=== PATIENT | female | born 1965 | race Caucasian/White ===

== ENCOUNTER 2020-07-12 06:02 | Emergency (ER) | payer OTHER, BC, SELFPAY ==
[2020-07-12 06:03] VITALS: BP 155/98; PULSE 119; RESP 18; TEMP 36.4; O2SAT 100
--- NOTE | 2020-07-12 06:10 | ED.GENADULT ---
HPI - General Adult General Chief complaint: Extremity Injury, Lower Stated complaint: leg pain Time Seen by Provider: 07/12/20 06:12 Source: patient Mode of arrival: EMS Limitations: no limitations History of Present Illness HPI narrative: A 55-year-old female presents to the emergency department with complaints of pain in her bilateral lower legs. Patient states that she is scheduled for knee replacement surgery on July 17. Because of this she was instructed to stop taking all of her rheumatoid arthritis medications. Because of this patient states that her pain has been flaring up severely tonight. Patient got to the point where she was states that she was in so much pain she could no longer walk. Related Data Home Medications Medication Instructions Recorded Confirmed pregabalin 75 mg capsule 150 mg PO TID cap 08/21/19 03/24/20 tramadol 50 mg tablet 50 mg PO Q6H PRN 08/21/19 03/24/20 Allergies Allergy/AdvReac Type Severity Reaction Status Date / Time No Known Allergies Allergy Verified 03/24/20 10:27 Review of Systems Review of Systems: Narrative: CONSTITUTIONAL: Denies fever, chills, or sweats. EYES: Denies visual changes, redness, or discharge. ENT: Denies rhinorrhea, congestion, sore throat, or otalgia. CARDIOVASCULAR: Denies chest pain, palpitations, or edema. RESPIRATORY: Denies cough or dyspnea. GASTROINTESTINAL: Denies abdominal pain, nausea, vomiting, or diarrhea. GENITOURINARY: Denies dysuria or hematuria. SKIN: Denies rash or itching. MUSCULOSKELETAL: Endorses exacerbations of chronic pain in her lower back and lower extremities NEUROLOGIC: Denies headache, numbness, dizziness, or weakness. PSYCHIATRIC: Denies anxiety or depression. [facility] Past Medical History Medical History CKD (chronic kidney disease) stage 3, GFR 30-59 ml/min GERD without esophagitis Hypertension Metal bone fixation hardware in place Neuropathy Obesity Rheumatoid arthritis Surgical History Surgical History History of knee surgery Previous back surgery S/P laminectomy with spinal fusion Family History Family History Father Hypertension Mother Hypertension Family history of scoliosis Family history of malignant melanoma Social History Social History Smoking status: Never smoker Second hand tobacco smoke exposure: No Alcohol intake: current Substance use: never Substance use type: does not use Gender identity (if verbalized by the patient): Female Exam Narrative: Exam Narrative: GENERAL: Well-appearing, well-nourished, and in no acute distress. Obese. HEAD: Normocephalic, atraumatic. EYES: PERRLA and EOMI. ENT: Nares clear, no rhinorrhea or epistaxis. Mucous membranes moist. Oropharynx without tonsillar hypertrophy exudate or other lesions. Bilateral TMs pearly mitchell nonbulging NECK: Supple. No adenopathy or masses. No carotid bruits or JVD CHEST: Clear to auscultation. No respiratory distress. No wheezes rales or rhonchi HEART: Regular rate and rhythm. No murmur heard. Normal peripheral pulses. ABDOMEN: Soft, nontender, nondistended, normal active bowel sounds. EXTREMITIES: Normal range of motion. No edema. SKIN: Warm, dry, no rash. NEURO: No focal deficits. Alert and oriented x3. PSYCH: Normal mood and affect. Course Vital Signs Vital signs: Vital Signs Temperature 36.4 C L 07/12/20 06:03 Pulse Rate 119 H 07/12/20 06:03 Respiratory Rate 18 07/12/20 06:03 Blood Pressure 155/98 H 07/12/20 06:03 Pulse Oximetry 100 07/12/20 06:03 Temperature 36.4 C L 07/12/20 07:04 Pulse Rate 119 H 07/12/20 06:03 Respiratory Rate 18 07/12/20 06:03 Blood Pressure 155/98 H 07/12/20 06:03 Pulse Oximetry 100 07/12/20 06:03 Medical Decision Making MDM Narrative M
[2020-07-12] MEDS: oxyCODONE/ACETAMINOPHEN (*CRX) 5-325 MG TABLET 2 TABLET PO (06:34)
[2020-07-12] MEDS: methylPREDNISolone SOD SUCC 125 MG VIAL IM (06:35)
[2020-07-12] MEDS: IBUPROFEN 400 MG TABLET 800 MG PO (06:35)
[2020-07-12 07:04] VITALS: TEMP 36.4
[2020-07-12 08:42] VITALS: BP 131/84; PULSE 115; RESP 18; O2SAT 97
== END 2020-07-12 08:44 | disposition home or self-care (01) ==
PROVIDERS: Emergency Provider Emergency Medicine; PCP Family Medicine
DX: M06.9 Rheumatoid arthritis, unspecified (principal); I12.9 Hypertensive chronic kidney disease with stage 1 through stage 4 chronic kidney disease, or unspecified chronic kidney disease; N18.30 Chronic kidney disease, stage 3 unspecified; K21.9 Gastro-esophageal reflux disease without esophagitis; G62.9 Polyneuropathy, unspecified; E66.9 Obesity, unspecified; Z68.37 Body mass index [BMI] 37.0-37.9, adult; Z98.1 Arthrodesis status
CPT/HCPCS: 96372; 99283; A9270; J2930

== ENCOUNTER 2020-07-23 16:56 | IRF | payer OTHER, BC, SELFPAY ==
--- NOTE | ~2020-07-23 | US_ITS ---
EXAMINATION:US venous doppler LE RT INDICATION:Leg edema and pain TECHNIQUE: Multiple grayscale, color flow and Doppler images of the right lower extremity deep venous systems were obtained and reviewed. COMPARISON:No prior studies for comparison. FINDINGS: The common femoral, superficial femoral and popliteal veins demonstrate normal respiratory variation, augmentation and compressibility. Color flow is also seen within the posterior tibial, pe roneal, greater saphenous and profunda veins. IMPRESSION: 1: No lower extremity deep venous thrombosis. Reviewed, dictated and finalized at location B. [facility] [employer]
--- NOTE | 2020-07-23 17:01 | ADMGEN ---
This patient, Natividad Rodriges, was admitted to [facility] Room 226-02. Patient/family oriented to hospital policies and general routines including ID bracelet, bed and alarms, visiting hours, pain management, procedures, bathroom and other care routines, personal items, smoking policy, room service/diet, and visiting hours. Information on how to activate the Rapid Response Team has been discussed. Patient/Family are encouraged to report perceived risks to care and to ask questions if they do not understand what they are told or what they should do.
[2020-07-23 18:28] VITALS: BP 135/83; PULSE 83; RESP 20; TEMP 36.3; O2SAT 95; BMI 39.5
[2020-07-23 22:00] VITALS: BP 123/78; PULSE 85; RESP 16; TEMP 36.4; O2SAT 99
[2020-07-23] MEDS: FERROUS SULFATE 324 MG TABLET PO (22:17)
[2020-07-23] MEDS: MAGNESIUM OXIDE 400 MG TABLET PO (22:18)
[2020-07-23] MEDS: oxyCODONE/ACETAMINOPHEN (*CRX) 5-325 MG TABLET 1 TABLET PO (22:24)
[2020-07-23] MEDS: CYCLOBENZAPRINE HCL 10 MG TABLET PO (22:25)
[2020-07-23] MEDS: oxyCODONE HCL (*CRX) 2.5 MG TAB IR PO (22:26)
[2020-07-23] MEDS: BENZOCAINE/MENTHOL (*BKC) 18 EA LOZENGE 1 LOZENGE PO (23:41)
[2020-07-24 05:27] LABS: Hematocrit 27.7 % (37.0-47.0); Hemoglobin 8.8 g/dL (12.0-15.0); Mean Corpuscular HGB Conc 31.8 g/dl (32-36); Mean Corpuscular Volume 97.5 fl (80-100); Mean Platelet Volume 9.7 fl (7.4-10.4); Platelet Count Result 506 k/mm3 (150-375); Red Blood Count 2.84 M/mm3 (4.2-5.4); Red Cell Distribution Width 17.3 % (11.5-14.5); White Blood Count 18.3 K/mm3 (4.5-10.0)
[2020-07-24 05:36] LABS: Anion Gap 5 mmol/L (8-16); Blood Urea Nitrogen 41 mg/dL (7-17); Calcium 9.3 mg/dL (8.4-10.2); Carbon Dioxide 27 mmol/L (22-30); Chloride 105 mmol/L (98-107); Estimated CRCL calculation 72 ml/min; Estimated Glomerular Filt Rate > 60; Glucose 96 mg/dL (65-105); Potassium 4.1 mmol/L (3.4-5.0); Sodium 137 mmol/L (137-145)
[2020-07-24 06:00] VITALS: BP 111/70; PULSE 82; RESP 16; TEMP 36.3; O2SAT 99
[2020-07-24] MEDS: PANTOPRAZOLE 40 MG TABLET PO (06:44)
[2020-07-24] MEDS: oxyCODONE/ACETAMINOPHEN (*CRX) 5-325 MG TABLET 1 TABLET PO ×2 (06:47→10:57)
[2020-07-24] MEDS: oxyCODONE HCL (*CRX) 2.5 MG TAB IR PO (06:48)
[2020-07-24 06:58] LABS: Atypical Lymphocytes Present; Band Neutrophils Percent 2 % (0-6); Eosinophils Absolute Manual 0.36 K/mm3 (0.02-0.5); Eosinophils Percent Manual 2 % (0-4); Monocytes Absolute Manual 1.64 K/mm3 (0.1-0.90); Monocytes Percent Manual 9 % (3-9); Neutrophils Absolute Manual 12.07 K/mm3 (1.7-7.2); Neutrophils Percent Manual 64 % (46-73); Nucleated Red Blood Cells 1 %; Platelet Estimate Increased (Adequate); Total Cells Counted 100
[2020-07-24 06:59] LABS: Anisocytosis 1+ (NORMAL); Hypochromasia 1+ (NORMAL); Large Platelets Present; Macrocytosis 1+ (NORMAL); Ovalocytes 1+ (NORMAL)
[2020-07-24 08:00] VITALS: PULSE 82; RESP 16; O2SAT 99
[2020-07-24] MEDS: BENZOCAINE/MENTHOL (*BKC) 18 EA LOZENGE 1 LOZENGE PO ×2 (08:41→23:44)
[2020-07-24] MEDS: ONDANSETRON HCL ODT 4 MG TABLET PO (08:56)
[2020-07-24] MEDS: CHOLECALCIFEROL 1,000 UNITS TABLET 5000 UNITS PO (11:21)
[2020-07-24] MEDS: lisinopriL 20 MG TABLET PO (11:22)
[2020-07-24] MEDS: FOLIC ACID 1 MG TABLET 2 MG PO (11:23)
[2020-07-24] MEDS: MAGNESIUM OXIDE 400 MG TABLET PO ×2 (11:23→21:02)
[2020-07-24] MEDS: ASCORBIC ACID 500 MG TABLET 1000 MG PO (11:23)
[2020-07-24] MEDS: FERROUS SULFATE 324 MG TABLET PO ×2 (11:23→16:22)
[2020-07-24] MEDS: ASPIRIN 325 MG ENTERIC TABLET PO (11:24)
[2020-07-24] MEDS: predniSONE 5 MG TABLET PO (11:24)
[2020-07-24] MEDS: PREGABALIN (*CRX) 75 MG CAPSULE 150 MG PO (11:36)
--- NOTE | 2020-07-24 12:41 | WPDREHABHP ---
H&P: HPI History of Present Illness Date/Time: 07/24/20 12:41 HISTORY OF PRESENT ILLNESS: The patient's primary rehab impairment category is [] The etiologic diagnosis is [] I saw this patient [id number] on [] The patient is a [] Therapy was initiated at the acute care facility and the patient transferred to us from [[facility]] on [] FALLS OR SURGERIES: The patient has had [no] major surgeries in the 100 days prior to admission. They had [no] falls in the past year. They had [no] falls with injury in the past year. PAST MEDICAL HISTORY: [] PAST SURGICAL HISTORY: [] SOCIAL HISTORY: [] FAMILY HISTORY: [] PRIOR LEVEL OF FUNCTION: Eating was [INDEPENDENT] Oral Care was [INDEPENDENT] Toileting Hygiene was [INDEPENDENT] Shower/Bathing was [INDEPENDENT] Upper Body Dressing was [INDEPENDENT] Lower Body Dressing was [INDEPENDENT] Donning/[employer] [place] Footwear was [INDEPENDENT] Rolling Left and Right was [INDEPENDENT] Sit to Lying was [INDEPENDENT] Lying to Sitting was [INDEPENDENT] Sit to Stand was [INDEPENDENT] Bed to Chair Transfers was [INDEPENDENT] Toilet Transfers was [INDEPENDENT] Walking was [INDEPENDENT] [>500 feet] with [NO DEVICE] Wheelchair Mobility was [NOT APPLICABLE PRIOR TO ADMISSION] Stairs were [INDEPENDENT] CURRENT LEVEL OF FUNCTION: Eating was [SET UP ONLY] Oral Care was [SET UP ONLY] Toileting Hygiene was [] Shower/Bathing was [] Upper Body Dressing was [] Lower Body Dressing was [] Donning/[employer] [place] Footwear was [] Rolling Left and Right was [] Sit to Lying was [] Lying to Sitting was [] Sit to Stand was [] Bed to Chair Transfers were [] Toilet Transfers were [] Walking was [] Wheelchair Mobility was [] Stairs were [] GOALS: Our therapists will evaluate the patient and establish the goals. However, upon pre-admission screening, the expected goals were to be [INDEPENDENT] with self-care, [INDEPENDENT] with transfers, and [INDEPENDENT] with functional mobility so that the patient can return home. ESTIMATED LENGTH OF STAY: [10-14 days] POTENTIAL BARRIERS TO DISCHARGE: [Patient lives alone.] [Family needs training.] [Severity of condition.] [Architectural barriers.] ACTIVE CO-MORBIDITIES PRESENT ON ADMISSION: Active co-morbidities include []. The above co-morbidities impact the patient's function and/or functional outcome by [] Narrative: Natividad Rodriges is a 55 year old female PMF Past Medical History Medical History CKD (chronic kidney disease) stage 3, GFR 30-59 ml/min GERD without esophagitis Hypertension Metal bone fixation hardware in place Neuropathy Obesity Rheumatoid arthritis Surgical History Surgical History History of knee surgery Previous back surgery S/P laminectomy with spinal fusion Family History Family History Father Hypertension Mother Hypertension Family history of scoliosis Family history of malignant melanoma Social History Social History Smoking status: Never smoker Second hand tobacco smoke exposure: No Alcohol intake: former Substance use: current Substance use type: prescription drug Other substance usage details: prescription Gender identity (if verbalized by the patient): Female Sexual Orientation (if Verbalized by the Patient): Lesbian, Rudolph, or Homosexual Spiritual care concerns: No Meds Home Medications and Allergies Home Medications Medication Instructions Recorded Confirmed Type cyclobenzaprine 10 mg tablet 10 mg PO TID PRN #90 tablet 06/05/19 07/23/20 Rx pregabalin 75 mg capsule 150 mg PO DAILY cap 08/21/19 07/23/20 History lisinopril 20 mg tablet 20 mg PO DAILY #90 tablet 09/10/19 07/23/20 Rx abatacept 125 mg/mL subcutaneous 125 mg SUB-Q WEEKLY #4 ml 02/14/20
--- NOTE | 2020-07-24 12:43 | WPDREHABHP ---
H&P: HPI History of Present Illness Date/Time: 07/24/20 12:43 Chief Complaint: is status post right total knee arthroplasty in addition to the history of rheumatoid arthritis and osteoarthritis Narrative: Natividad Rodriges is a 55 year old femaleHISTORY OF PRESENT ILLNESS: the patient's primary rehab impairment category is orthopedic -lower extremity joint replacement and etiological diagnosis is right knee rheumatoid arthritis with osteoarthritis history of present illness: the patient is a 55 years old female with a past medical history of hypertension, rheumatoid arthritis, osteoarthritis, and right knee pain who presented to [facility] on July 17, 2020 for an elective total knee arthroplasty with Dr. Joon vyas. The patient was seen by Dr. Juanita vyas for evaluation and treatment of and specially difficult case of rheumatoid arthritis with osteoarthritic damage overlying. 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 She was diagnosed with rheumatoid arthritis approximately 6 years previously and had a rapid worsening of deterioration in all of her joints including her spine. This patient was treated with multiple medications to include, methotrexate, prednisone, and meloxicam. The patient has received multiple intra-articular injections and other treatments, including medial meniscectomy, debridement of the patellofemoral articulation, removal of loose bodies, and removal of scar tissues. She was rapidly worsening even with medications, heat, ice, and physical therapy. She was primarily in a wheelchair prior to the surgery. She underwent a right total knee arthroplasty on July 17, [address] Juanita vyas. Postoperatively the patient experienced significant hypotension requiring rapid response, acute postoperative pain, acute blood loss anemia requiring blood transfusion, acute renal failure, urinary retention, and hypertension. Physical examination continued to reveal impaired ability to ambulate, left knee buckling, impaired ability to perform activities of daily living independently. She required intensive inpatient physical and occupational therapy to transition to independence. She was discharged to rehab on aspirin 325 mg twice a day for DVT prophylaxis. #COVID: The patient has not traveled outside the [place] or had contact with someone who is ill that is travel outside the [place] in the past 21 days. The patient has not traveled to an area of the [place] that is experiencing known transmission of the Coronavirus and has not had close personal contact with anyone that has. The patient does not have a fever the patient is not experiencing lower respiratory illness symptoms. # Therapy was initiated at the acute care facility and the patient was transferred to us from [facility] on July 23, 2020. FALLS OR SURGERIES: The patient has had major surgery in the last 100 days that is on July 17, 2020 right total knee arthroplasty. The patient has had no falls in the past year. The patient has had no falls with injury in the past year. PAST MEDICAL HISTORY: Hypertension, rheumatoid arthritis, osteoarthritis. PAST SURGICAL HISTORY: osteotomy, arthroscopy, and back surgery. SOCIAL HISTORY: The patient is , is a nonsmoker, denies alcohol or drug abuse. The patient lives with her spouse in a 1 level house with a basement with 3 steps to enter. The patient was independent with transfers, ADL S, ambulation with a wheeled walker or cane. Long distances or when her knees were really hurting she would use a wheelchair independently. The patient's spouse works during the day but if the patient needs assistance at home immediately following rehab will be able to stay with the patient FAMILY HISTORY: hypertension. No family history of illness that would affect her current condition. PRIOR LEVEL OF FUNCTION: Eating was
[2020-07-24 13:09] VITALS: BMI 39.5
[2020-07-24 14:00] VITALS: BP 121/74; PULSE 87; RESP 20; TEMP 36.7; O2SAT 100
[2020-07-24] MEDS: oxyCODONE/ACETAMINOPHEN (*CRX) 5-325 MG TABLET 2 TABLET PO ×2 (16:19→21:09)
[2020-07-24] MEDS: LIDOCAINE 5% PATCH 1 PATCH TRANSDERM ×2 (16:22→16:23)
[2020-07-24] MEDS: NEOMYCIN/POLYMYXIN/BACITRACIN OINTMENT 15 GM TUBE 1 APPLIC TOPICAL (17:06)
[2020-07-24 20:00] VITALS: PULSE 81; RESP 18; O2SAT 99
[2020-07-24] MEDS: CYCLOBENZAPRINE HCL 10 MG TABLET PO (21:09)
[2020-07-24 21:55] VITALS: BP 136/84; PULSE 81; RESP 18; TEMP 36.4; O2SAT 99
[2020-07-25] MEDS: oxyCODONE/ACETAMINOPHEN (*CRX) 5-325 MG TABLET 2 TABLET PO ×5 (01:11→18:33)
[2020-07-25 04:55] VITALS: BP 122/68; PULSE 81; RESP 18; TEMP 36.6; O2SAT 98
[2020-07-25] MEDS: PANTOPRAZOLE 40 MG TABLET PO (06:54)
[2020-07-25] MEDS: CHOLECALCIFEROL 1,000 UNITS TABLET 5000 UNITS PO (08:40)
[2020-07-25] MEDS: FOLIC ACID 1 MG TABLET 2 MG PO (08:40)
[2020-07-25] MEDS: ASPIRIN 325 MG ENTERIC TABLET PO (08:40)
[2020-07-25] MEDS: FERROUS SULFATE 324 MG TABLET PO ×2 (08:40→17:09)
[2020-07-25] MEDS: ASCORBIC ACID 500 MG TABLET 1000 MG PO (08:40)
[2020-07-25] MEDS: MAGNESIUM OXIDE 400 MG TABLET PO ×2 (08:41→20:37)
--- NOTE | 2020-07-25 08:41 | RPD ---
INDIVIDUALIZED PLAN OF CARE FOR Natividad Rodriges Brief Synthesis of Pre-Admission Screen, Post-Admission Evaluation and Therapy Evaluations: The patient presents to rehab with a right knee rheumatoid arthritis with osteoarthritis and post-op complications. Comorbidities include status post right total knee arthroplasty, acute postoperative pain, postoperative hypotension, acute renal failure, hypertension, acute blood loss anemia, gastroesophageal reflux disease, Rheumatoid arthritis, obesity, impaired mobility, and decreased urine output. The complexity of the patient's medical management,nursing, and therapy needs require an inpatient rehab hospital stay with a physician-led interdisciplinary team approach. The patient?s needs will be best met in an intensive program vs. at a lower level of care. The patient requires physician services for medical oversight, management of postop complications in setting of present comorbidities, and pain management. She will be followed at least three times a week by the rehabilitation physician. Orthopedics may see the patient at the frequency of their discretion. Labs will be drawn to monitor blood counts and electrolytes periodically. The patient requires nursing services for DVT prophylactics, infection protection, medication management and education, pressure relief, and wound care. Deficits include:ADLs, Balance, Endurance, Family Training/Education, Mobility, Pain Management, ROM, Safety, Strength, and Transfers. Visual Basic Developer/Case Management for: Discharge Planning and Patient/Family Counseling Physical Therapy: 5 days per week for 90 minutes. Treatments may include: Therapeutic Exercise, Gait Training, Neuromuscular Re-education, Transfer Training, Community Reintegration, Bed Mobility, Patient/Family Education, Wheelchair Mobility Group Therapy/Concurrent Therapy Rationales: -Improve attention span during functional activities in a distracted environment. -Enhance problem solving and/or adequate judgment skills during functional activities in a distracted environment. -Promote increased safety awareness in a distracted environment to reduce fall risk with functional tasks, transfers, and ambulation to allow a more safe, self-sufficient return to the home environment. -Improve dynamic balance skills to promote safety and independence with functional activities in a distracted environment for maximum gain. Occupational Therapy: 5 days per week for 90 minutes. Treatments may include: Therapeutic Exercise, Therapeutic Activity, Cognitive Training, Self-Care Transfer Training, Community Reintegration, Home Management, Patient/Family Education, Wheelchair Mobility Training, Energy Conservation Training Group Therapy/Concurrent Therapy Rationales: -Allow therapist to observe and teach generalization and carry-over of skills learned in individual therapy. -Enhance problem solving and sequencing skills during therapeutic activities in a distracted environment. -Promote increased safety awareness in a realistic setting to reduce fall risk with functional tasks due to visual and verbal distractions. -Increase functional level with ADLs, ADL transfers and use of adaptive equipment through therapeutic activities with others while promoting safety to allow a more safe, self-sufficient return home. Medical Prognosis: Good Anticipated Length of Stay: 10 days Rehab Goals: Eating Goal: 06-Independent Oral Hygiene Goal: 06-Independent Toileting Hygiene Goal: 06-Independent Shower/Bathe Self Goal: 06-Independent Upper Body Dressing Goal: 06-Independent Lower Body Dressing Goal: 06-Independent Putting On/Taking Off Footwear Goal: 06-Independent Rolling Left and Right Goal: 06-Independent Sit to Lying Goal: 06-Independent Lying to Sitting on Side of Bed Goal: 06-Independent Sit to Stand Goal: 06-Independent Chair/[id number]-uw-[id number] Transfer Goal: 06-Independent Toilet Transfer Goal: 06-Independent Car Transfer Goal: 06-Independent W
[2020-07-25] MEDS: NEOMYCIN/POLYMYXIN/BACITRACIN OINTMENT 15 GM TUBE 1 APPLIC TOPICAL (08:42)
[2020-07-25] MEDS: predniSONE 5 MG TABLET PO (08:42)
[2020-07-25] MEDS: lisinopriL 20 MG TABLET PO (08:42)
[2020-07-25] MEDS: PREGABALIN (*CRX) 75 MG CAPSULE 150 MG PO (09:18)
[2020-07-25] MEDS: LIDOCAINE 5% PATCH 1 PATCH TRANSDERM ×2 (09:23)
--- NOTE | 2020-07-25 13:20 | PCPTNOTE ---
The patient treatment was not able to be completed on 07-25-2020 due to patient's pain of right hip. Patient reported pain is worse then this morning. Therapist informed David and Marisa. Therapist assessed increased swelling of right leg and informed R.Alberto. Patient missed 45 minutes of PT session. Will plan to continue treatment per plan of care.
[2020-07-25] MEDS: CYCLOBENZAPRINE HCL 10 MG TABLET PO ×2 (13:24→18:33)
--- NOTE | 2020-07-25 13:46 | WPDNEURORHBP ---
Subjective Date/time seen: 0 55 years old lady is status post right total knee arthroplasty in addition to history of severe rheumatoid arthritis and osteoarthritis has been experiencing severe pain because she has been taken of the anti rheumatoid medication by her physician for the time being pain medication have been adjusted but even then pain is out of control, lab revealed WBC is 18.3 with hemoglobin 8.8 platelet count of 506, electrolytes are normal with BUN of 41, will obtain the urine culture Review of Systems Review of Systems: All systems reviewed & are unremarkable except as noted in HPI and below Exam Const: General: cooperative, alert, awake and acute distress Nutritional Appearance: overweight Limitations: other limitations HENMT: Head: normocephalic Ears: hearing grossly normal bilaterally General nose exam: Normal external nose present and No nasal discharge present Mouth: Yes Normal oral and palatal mucosa present Eyes: General: appearance normal, both eyes and all related structures Alignment and Position: alignment normal Periorbital: periorbital findings normal Eyelids: eyelids normal Conjunctivae: conjunctivae normal Sclera: sclerae normal Cornea: corneas normal Pupils: Equal, round and reactive pupils present EOM: EOMs intact bilaterally Neck: Neck: full ROM Resp: Effort & Inspection: normal respiratory effort Auscultation: clear to auscultation bilaterally Cardio: Rate: regular rate Rhythm: regular rhythm GI: Auscultation: normal bowel sounds Skin: General skin exam: no rashes or lesions noted Neuro: General: patient oriented x3 Cranial nerves: Yes CN's II-XII intact bilaterally Cognition (Neuro): normal cognition Speech: normal speech Motor exam (neuro): Abnormal motor strength present Sensory Exam: normal sensation Deep tendon reflexes (DTR's): Right triceps reflex intensity grade: 1+, Left triceps reflex intensity grade: 1+, Rt Biceps (C5, C6): 1+, Left biceps reflex intensity grade: 1+, Right brachioradialis reflex intensity grade: 1+, Left brachioradialis reflex intensity grade: 1+, Left patellar reflex intensity grade: 0, Right ankle reflex intensity grade: 0 and Left ankle reflex intensity grade: 0 Plantar Reflex Responses: downgoing: bilateral Coordination: [id number] test normal Psych: Appearance: grossly normal Mental Status: mental status grossly normal Speech and movement: Normal speech and movement present Affect: Sad affect present ( increasing pain) Attitude: cooperative Thought process: Normal thought process present Thought content: Yes Normal thought content present Insight: Good insight present (Psych) Judgement: Good judgement present (Psych) Objective Data Vital Signs Vital Signs: Vital Signs - 24 hr 07/24/20 14:00 07/24/20 20:00 07/24/20 21:55 Temperature 36.7 C 36.4 C Pulse Rate 87 81 81 Respiratory Rate 20 18 18 Blood Pressure 121/74 136/84 Pulse Oximetry 100 99 99 07/25/20 04:55 Temperature 36.6 C Pulse Rate 81 Respiratory Rate 18 Blood Pressure 122/68 Pulse Oximetry 98 Intake/Output Intake/Output: Intake & Output 07/22/20 07/23/20 07/24/20 07/25/20 23:59 23:59 23:59 23:59 Intake Total 720 480 Balance 720 480 Meds/Results Medications: Active Medications Generic Name Dose Route Start Last Admin Trade Name Freq PRN Reason Stop Dose Admin Acetaminophen/Aspirin/Caffeine 1 tablet 07/23/20 18:25 Acetaminophen/Aspirin/Caffeine 250-250-65 Mg Tablet PO DAILY PRN Migraine Headache Ascorbic Acid 1,000 mg 07/24/20 09:00 07/25/20 08:40 Ascorbic Acid 500 Mg Tablet PO 1,000 mg DAILY JOSIAH Administration Aspirin 325 mg 07/24/20 09:00 07/25/20 08:40 Aspirin 325 Mg Enteric Tablet PO 08/22/20 09:01 325 mg DAILY JOSIAH Administration Benzocaine 1 lozenge 07/23/20 23:26 07/24/20 23:44 Benzocaine/Menthol (*Bkc) 18 Ea Lozenge PO 1 lozenge PRN PRN Administration Sore Throat Calcium Carbonate
[2020-07-25 14:00] VITALS: BP 100/50; PULSE 97; RESP 20; TEMP 36.9; O2SAT 100
--- NOTE | 2020-07-25 14:00 | PCOTNOTE ---
Patient was seen for OT P.M. treatment session. Patient performed 25 minutes of her needed 40 minutes to meet her daily minutes for the day. Patient was unable to tolerate all minutes this afternoon due to increased pain. Patient complaining on 10/10 pain and feels it climbing. RN is aware and has spoke with the doctor.
[2020-07-25] MEDS: methylPREDNISolone (MEDROL) DOSEPACK 4 MG TABLETS 8 MG PO (14:02)
[2020-07-25] MEDS: methylPREDNISolone (MEDROL) DOSEPACK 4 MG TABLETS PO (18:36)
[2020-07-25] MEDS: SENNA/DOCUSATE SODIUM TABLET 1 TAB PO (20:37)
[2020-07-25 21:45] VITALS: BP 114/62; PULSE 81; RESP 48; TEMP 36.2; O2SAT 97
[2020-07-26] MEDS: oxyCODONE/ACETAMINOPHEN (*CRX) 5-325 MG TABLET 2 TABLET PO ×3 (02:39→20:08)
[2020-07-26] MEDS: CYCLOBENZAPRINE HCL 10 MG TABLET PO ×2 (03:13→20:45)
[2020-07-26 05:23] VITALS: BP 134/90; PULSE 73; RESP 18; TEMP 36.1; O2SAT 100
[2020-07-26] MEDS: PANTOPRAZOLE 40 MG TABLET PO (06:07)
[2020-07-26] MEDS: LIDOCAINE 5% PATCH 1 PATCH TRANSDERM ×2 (09:02)
[2020-07-26] MEDS: polyethylene glycoL 3350 17 GM POWD.PACK PO (09:03)
[2020-07-26] MEDS: PREGABALIN (*CRX) 75 MG CAPSULE 150 MG PO (09:03)
[2020-07-26] MEDS: ASCORBIC ACID 500 MG TABLET 1000 MG PO (09:04)
[2020-07-26] MEDS: SENNA/DOCUSATE SODIUM TABLET 1 TAB PO ×2 (09:04→20:08)
[2020-07-26] MEDS: lisinopriL 20 MG TABLET PO (09:04)
[2020-07-26] MEDS: FOLIC ACID 1 MG TABLET 2 MG PO (09:04)
[2020-07-26] MEDS: CHOLECALCIFEROL 1,000 UNITS TABLET 5000 UNITS PO (09:04)
[2020-07-26] MEDS: predniSONE 5 MG TABLET PO (09:05)
[2020-07-26] MEDS: ASPIRIN 325 MG ENTERIC TABLET PO (09:05)
[2020-07-26] MEDS: NEOMYCIN/POLYMYXIN/BACITRACIN OINTMENT 15 GM TUBE 1 APPLIC TOPICAL (09:05)
[2020-07-26] MEDS: FERROUS SULFATE 324 MG TABLET PO ×2 (09:05→17:38)
[2020-07-26] MEDS: MAGNESIUM OXIDE 400 MG TABLET PO ×2 (09:05→20:08)
[2020-07-26 10:57] VITALS: PULSE 100; O2SAT 100
[2020-07-26 11:28] LABS: Add Urine Microscopic? YES; Appearance Urine Cloudy (Clear); Bilirubin Urine Negative (Negative); Color Urine Yellow (Yellow); Glucose Urine UA Negative (Negative); Ketones Urine Negative (Negative); Leukocyte Esterase Ur 2+ LEU/UL (Negative); Nitrate Urine Negative (Negative); Protein Urine Negative (Negative); Specific Grav Ur 1.013 (1.001-1.035); Squamous Epithelial Cell Urine Rare /hpf (Few); Transitional Epi Cells Urine Rare /hpf (None Seen); Urobilinogen Urine Negative mg/dL (<2.0); WBC Urine 51-75 /hpf
[2020-07-26 11:29] LABS: Blood Urine Negative (Negative)
[2020-07-26] MEDS: methylPREDNISolone (MEDROL) DOSEPACK 4 MG TABLETS PO ×2 (13:36→17:38)
[2020-07-26 14:00] VITALS: BP 115/67; PULSE 80; RESP 20; TEMP 36.2; O2SAT 100
[2020-07-26] MEDS: methylPREDNISolone 4 MG TABLET PO (20:56)
[2020-07-27] MEDS: oxyCODONE/ACETAMINOPHEN (*CRX) 5-325 MG TABLET 2 TABLET PO ×5 (00:13→21:26)
[2020-07-27 06:00] VITALS: BP 122/73; PULSE 77; RESP 20; TEMP 36.2; O2SAT 99
[2020-07-27] MEDS: CYCLOBENZAPRINE HCL 10 MG TABLET PO (06:24)
[2020-07-27] MEDS: methylPREDNISolone 4 MG TABLET PO ×4 (06:25→20:28)
[2020-07-27] MEDS: PANTOPRAZOLE 40 MG TABLET PO (06:25)
[2020-07-27] MEDS: ASCORBIC ACID 500 MG TABLET 1000 MG PO (09:02)
[2020-07-27] MEDS: MAGNESIUM OXIDE 400 MG TABLET PO ×2 (09:03→20:28)
[2020-07-27] MEDS: FERROUS SULFATE 324 MG TABLET PO ×2 (09:03→16:09)
[2020-07-27] MEDS: ASPIRIN 325 MG ENTERIC TABLET PO (09:03)
[2020-07-27] MEDS: FOLIC ACID 1 MG TABLET 2 MG PO (09:03)
[2020-07-27] MEDS: CHOLECALCIFEROL 1,000 UNITS TABLET 5000 UNITS PO (09:03)
[2020-07-27] MEDS: predniSONE 5 MG TABLET PO (09:04)
[2020-07-27] MEDS: PREGABALIN (*CRX) 75 MG CAPSULE 150 MG PO (09:04)
[2020-07-27] MEDS: lisinopriL 20 MG TABLET PO (09:04)
[2020-07-27] MEDS: LIDOCAINE 5% PATCH 1 PATCH TRANSDERM ×2 (09:05)
[2020-07-27] MEDS: NEOMYCIN/POLYMYXIN/BACITRACIN OINTMENT 15 GM TUBE 1 APPLIC TOPICAL (09:06)
[2020-07-27] MEDS: polyethylene glycoL 3350 17 GM POWD.PACK PO (09:06)
[2020-07-27 14:00] VITALS: BP 137/69; PULSE 84; RESP 18; TEMP 36.6; O2SAT 97
[2020-07-27 20:20] VITALS: PULSE 84; RESP 18; O2SAT 97
[2020-07-27 22:00] VITALS: BP 138/73; PULSE 88; RESP 18; TEMP 36.7; O2SAT 100
[2020-07-28] MEDS: oxyCODONE/ACETAMINOPHEN (*CRX) 5-325 MG TABLET 2 TABLET PO ×4 (03:05→21:02)
[2020-07-28 06:00] VITALS: BP 132/68; PULSE 70; RESP 18; TEMP 36.4; O2SAT 96
[2020-07-28] MEDS: methylPREDNISolone 4 MG TABLET PO ×3 (06:45→20:58)
[2020-07-28] MEDS: PANTOPRAZOLE 40 MG TABLET PO (06:45)
[2020-07-28 08:00] VITALS: PULSE 70; RESP 18; O2SAT 96
[2020-07-28] MEDS: FERROUS SULFATE 324 MG TABLET PO ×2 (08:50→17:57)
[2020-07-28] MEDS: ASCORBIC ACID 500 MG TABLET 1000 MG PO (08:50)
[2020-07-28] MEDS: FOLIC ACID 1 MG TABLET 2 MG PO (08:51)
[2020-07-28] MEDS: CHOLECALCIFEROL 1,000 UNITS TABLET 5000 UNITS PO (08:51)
[2020-07-28] MEDS: ASPIRIN 325 MG ENTERIC TABLET PO (08:51)
[2020-07-28] MEDS: MAGNESIUM OXIDE 400 MG TABLET PO ×2 (08:52→20:58)
[2020-07-28] MEDS: LIDOCAINE 5% PATCH 1 PATCH TRANSDERM ×2 (08:52)
[2020-07-28] MEDS: lisinopriL 20 MG TABLET PO (08:52)
[2020-07-28] MEDS: NEOMYCIN/POLYMYXIN/BACITRACIN OINTMENT 15 GM TUBE 1 APPLIC TOPICAL (08:52)
[2020-07-28] MEDS: predniSONE 5 MG TABLET PO (08:53)
[2020-07-28] MEDS: PREGABALIN (*CRX) 75 MG CAPSULE 150 MG PO (08:53)
[2020-07-28] MEDS: polyethylene glycoL 3350 17 GM POWD.PACK PO (08:53)
--- NOTE | 2020-07-28 10:47 | PC.NURSE ---
Call placed to Dr. Hermosillo (physical therapist clinic director) for Dr. Quiroz. Asked for any suggestions for RA medication that would control patients pain. (arencia and methotrexate on hold from Dr. Walker).
[2020-07-28 14:00] VITALS: BP 134/74; PULSE 84; RESP 20; TEMP 36.1; O2SAT 100
--- NOTE | 2020-07-28 14:42 | WPDNEURORHBP ---
Subjective Date/time seen: 07/28/20 14:42 55 years old lady status post right total knee arthroplasty 2. Severe rheumatoid arthritis and osteoarthritis 3. Chronic pain because of the arthritis has been taken off the arthritic medication by her surgeon but she complains of continual pain in different joint was given a short course of Medrol Dosepak when she felt better not she is interested in getting the more prednisone we will make a call to her primary lokie driver see what else we can offer her during the rehab therapy, she has remained afebrile with temp of 36.1? pulse 84 aspiration 20 pulse ox 100 blood pressure 134/74 in supine, no new lab today Review of Systems Review of Systems: All systems reviewed & are unremarkable except as noted in HPI and below Functional Status Ambulation Ability Ambulation Assistive Devices: Walker, Wheeled Exam Const: General: cooperative, no acute distress, alert, awake, in distress and anxious Nutritional Appearance: overweight Orientation/consciousness: patient oriented x3 Limitations: physical limitations HENMT: Head: normocephalic Ears: hearing grossly normal bilaterally General nose exam: Normal external nose present and No nasal discharge present Face and sinus: normal facial exam Mouth: Yes Normal oral and palatal mucosa present Eyes: General: appearance normal, both eyes and all related structures Visual Blanchard: normal visual blanchard by confrontation Alignment and Position: alignment normal Periorbital: periorbital findings normal Eyelids: eyelids normal Conjunctivae: conjunctivae normal Sclera: sclerae normal Cornea: corneas normal Pupils: Equal, round and reactive pupils present Resp: Effort & Inspection: normal respiratory effort Auscultation: clear to auscultation bilaterally Cardio: Rate: regular rate Rhythm: regular rhythm GI: Auscultation: normal bowel sounds Neuro: General: patient oriented x3 Cranial nerves: Yes CN's II-XII intact bilaterally Cognition (Neuro): normal cognition Speech: normal speech Gait exam (Neuro): Assisted gait required Motor exam (neuro): 5/5 motor strength present throughout ( generally decreased) Deep tendon reflexes (DTR's): Right triceps reflex intensity grade: 1+, Left triceps reflex intensity grade: 1+, Rt Biceps (C5, C6): 1+, Left biceps reflex intensity grade: 1+, Right brachioradialis reflex intensity grade: 1+, Left brachioradialis reflex intensity grade: 1+, Right patellar reflex intensity grade: 1+, Left patellar reflex intensity grade: 1+, Right ankle reflex intensity grade: 1+ and Left ankle reflex intensity grade: 1+ Plantar Reflex Responses: downgoing: bilateral Psych: Speech and movement: Normal speech and movement present Affect: Sad affect present Attitude: cooperative Thought process: Normal thought process present Thought content: Yes Normal thought content present Insight: Good insight present (Psych) Judgement: Good judgement present (Psych) Objective Data Vital Signs Vital Signs: Vital Signs - 24 hr 07/27/20 20:20 07/27/20 22:00 07/28/20 06:00 Temperature 36.7 C 36.4 C Pulse Rate 84 88 70 Respiratory Rate 18 18 18 Blood Pressure 138/73 132/68 Pulse Oximetry 97 100 96 07/28/20 08:00 07/28/20 14:00 Temperature 36.1 C L Pulse Rate 70 84 Respiratory Rate 18 20 Blood Pressure 134/74 Pulse Oximetry 96 100 Intake/Output Intake/Output: Intake & Output 07/25/20 07/26/20 07/27/20 07/28/20 23:59 23:59 23:59 23:59 Intake Total 720 720 720 720 Balance 720 720 720 720 Meds/Results Medications: Active Medications Generic Name Dose Route Start Last Admin Trade Name Freq PRN Reason Stop Dose Admin Acetaminophen/Aspirin/Caffeine 1 tablet 07/23/20 18:25 Acetaminophen/Aspirin/Caffeine 250-250-65 Mg Tablet PO DAILY PRN Migraine Headache Amoxicillin/Clavulanate Potassium 1 tablet 07/28/20 21:00 Amoxicillin/Clavulanate K 875-125 Mg Tab PO 08/07/20 09:01 Q12HR [facility] Ascorb
[2020-07-28] MEDS: CYCLOBENZAPRINE HCL 10 MG TABLET PO ×2 (14:56→22:33)
[2020-07-28] MEDS: AMOXICILLIN/CLAVULANATE K 875-125 MG TAB 1 TABLET PO (20:58)
[2020-07-28 22:00] VITALS: BP 127/88; PULSE 75; RESP 16; TEMP 36.3; O2SAT 100
[2020-07-29] MEDS: oxyCODONE/ACETAMINOPHEN (*CRX) 5-325 MG TABLET 2 TABLET PO ×3 (05:08→20:47)
[2020-07-29] MEDS: methylPREDNISolone 4 MG TABLET PO ×2 (05:44→20:50)
[2020-07-29] MEDS: PANTOPRAZOLE 40 MG TABLET PO (05:46)
[2020-07-29 06:00] VITALS: BP 120/66; PULSE 70; RESP 16; TEMP 36.3; O2SAT 100
[2020-07-29 08:00] VITALS: PULSE 70; RESP 16; O2SAT 100
[2020-07-29] MEDS: ASCORBIC ACID 500 MG TABLET 1000 MG PO (08:14)
[2020-07-29] MEDS: polyethylene glycoL 3350 17 GM POWD.PACK PO (08:14)
[2020-07-29] MEDS: CHOLECALCIFEROL 1,000 UNITS TABLET 5000 UNITS PO (08:14)
[2020-07-29] MEDS: lisinopriL 20 MG TABLET PO (08:15)
[2020-07-29] MEDS: FOLIC ACID 1 MG TABLET 2 MG PO (08:15)
[2020-07-29] MEDS: AMOXICILLIN/CLAVULANATE K 875-125 MG TAB 1 TABLET PO ×2 (08:15→20:52)
[2020-07-29] MEDS: MAGNESIUM OXIDE 400 MG TABLET PO ×2 (08:15→20:52)
[2020-07-29] MEDS: predniSONE 5 MG TABLET PO (08:15)
[2020-07-29] MEDS: FERROUS SULFATE 324 MG TABLET PO ×2 (08:15→17:17)
[2020-07-29] MEDS: NEOMYCIN/POLYMYXIN/BACITRACIN OINTMENT 15 GM TUBE 1 APPLIC TOPICAL (08:16)
[2020-07-29] MEDS: ASPIRIN 325 MG ENTERIC TABLET PO (08:16)
[2020-07-29] MEDS: PREGABALIN (*CRX) 75 MG CAPSULE 150 MG PO (08:31)
[2020-07-29] MEDS: ONDANSETRON HCL ODT 4 MG TABLET PO (10:14)
[2020-07-29] MEDS: CYCLOBENZAPRINE HCL 10 MG TABLET PO ×2 (12:07→22:33)
--- NOTE | 2020-07-29 12:35 | PC.NURSE ---
no return call from Dr. Hermosillo, called office again and they stated they will resend message to
[2020-07-29 14:00] VITALS: BP 134/74; PULSE 87; RESP 16; TEMP 36.9; O2SAT 100
--- NOTE | 2020-07-29 14:02 | WPDNEURORHBP ---
Subjective Date/time seen: 07/29/20 14:02 55 years old status post right total knee arthroplasty 2. Severe rheumatoid arthritis and osteoarthritis 3. Chronic pain has been off her anti Hu met I had medication and has been noticing extreme ring of the interphalangeal joints particularly involving the hands which is giving her more pain though the pain medications are working fairly well she is interested in knowing if any anti rheumatoid medication can be started she obviously were taken off by the surgeon because of the recent surgery Review of Systems Review of Systems: All systems reviewed & are unremarkable except as noted in HPI and below Functional Status Ambulation Ability Ambulation Assistive Devices: Walker, Wheeled Exam Const: General: cooperative, healthy appearing, alert, awake, tired appearing and uncomfortable Nutritional Appearance: average body habitus Orientation/consciousness: oriented to person, oriented to place and oriented to time Limitations: physical limitations HENMT: Head: normocephalic Ears: hearing grossly normal bilaterally General nose exam: Normal external nose present Face and sinus: normal facial exam Mouth: Yes Normal oral and palatal mucosa present Eyes: General: appearance normal, both eyes and all related structures Visual Blanchard: normal visual blanchard by confrontation Alignment and Position: alignment normal Periorbital: periorbital findings normal Eyelids: eyelids normal Conjunctivae: conjunctivae normal Sclera: sclerae normal Cornea: corneas normal Pupils: Equal, round and reactive pupils present EOM: EOMs intact bilaterally Neck: Neck: full ROM Resp: Effort & Inspection: normal respiratory effort Auscultation: clear to auscultation bilaterally Cardio: Rate: regular rate Rhythm: regular rhythm GI: Auscultation: normal bowel sounds Skin: General skin exam: no rashes or lesions noted Neuro: General: patient oriented x3 Cranial nerves: Yes CN's II-XII intact bilaterally Cognition (Neuro): normal cognition Speech: normal speech Motor exam (neuro): Abnormal motor strength present Sensory Exam: Sensory deficit (Neuro) Extrem: General: full ROM, capillary refill normal and other ( swelling of the interphalangeal joints as well as metacarpophalangeal join) Psych: Appearance: grossly normal Objective Data Vital Signs Vital Signs: Vital Signs - 24 hr 07/28/20 22:00 07/29/20 06:00 07/29/20 08:00 Temperature 36.3 C L 36.3 C L Pulse Rate 75 70 70 Respiratory Rate 16 16 16 Blood Pressure 127/88 120/66 Pulse Oximetry 100 100 100 Intake/Output Intake/Output: Intake & Output 07/26/20 07/27/20 07/28/20 07/29/20 23:59 23:59 23:59 23:59 Intake Total 720 720 720 240 Balance 720 720 720 240 Meds/Results Medications: Active Medications Generic Name Dose Route Start Last Admin Trade Name Freq PRN Reason Stop Dose Admin Acetaminophen/Aspirin/Caffeine 1 tablet 07/23/20 18:25 Acetaminophen/Aspirin/Caffeine 250-250-65 Mg Tablet PO DAILY PRN Migraine Headache Amoxicillin/Clavulanate Potassium 1 tablet 07/28/20 21:00 07/29/20 08:15 Amoxicillin/Clavulanate K 875-125 Mg Tab PO 08/07/20 09:01 1 tablet Q12HR JOSIAH Administration Ascorbic Acid 1,000 mg 07/24/20 09:00 07/29/20 08:14 Ascorbic Acid 500 Mg Tablet PO 1,000 mg DAILY JOSIAH Administration Aspirin 325 mg 07/24/20 09:00 07/29/20 08:16 Aspirin 325 Mg Enteric Tablet PO 08/22/20 09:01 325 mg DAILY JOSIAH Administration Benzocaine 1 lozenge 07/23/20 23:26 07/24/20 23:44 Benzocaine/Menthol (*Bkc) 18 Ea Lozenge PO 1 lozenge PRN PRN Administration Sore Throat Calcium Carbonate 500 mg 07/23/20 18:25 Calcium Carbonate (Tums) 500 Mg (200 Mg Elemental) PO Q4H PRN Indigestion Cyclobenzaprine HCl 10 mg 07/23/20 18:25 07/29/20 12:07 Cyclobenzaprine Hcl 10 Mg Tablet PO 10 mg TID PRN Administration muscle spasm Ferrous Sulfate 324 mg
[2020-07-29 20:45] VITALS: PULSE 76; RESP 20; O2SAT 98
[2020-07-29 21:09] VITALS: BP 143/80; PULSE 76; RESP 20; TEMP 36.1; O2SAT 98
[2020-07-30] MEDS: oxyCODONE/ACETAMINOPHEN (*CRX) 5-325 MG TABLET 2 TABLET PO ×5 (03:32→23:09)
[2020-07-30] MEDS: CYCLOBENZAPRINE HCL 10 MG TABLET PO ×2 (05:22→23:09)
[2020-07-30] MEDS: methylPREDNISolone 4 MG TABLET PO (05:22)
[2020-07-30] MEDS: PANTOPRAZOLE 40 MG TABLET PO (05:25)
[2020-07-30 05:39] VITALS: BP 141/89; PULSE 85; RESP 22; TEMP 36.2; O2SAT 100
[2020-07-30] MEDS: LIDOCAINE 5% PATCH 1 PATCH TRANSDERM ×2 (08:00→10:22)
[2020-07-30] MEDS: FERROUS SULFATE 324 MG TABLET PO ×2 (08:16→17:24)
[2020-07-30] MEDS: AMOXICILLIN/CLAVULANATE K 875-125 MG TAB 1 TABLET PO ×2 (10:19→19:59)
[2020-07-30] MEDS: CHOLECALCIFEROL 1,000 UNITS TABLET 5000 UNITS PO (10:20)
[2020-07-30] MEDS: ASPIRIN 325 MG ENTERIC TABLET PO (10:21)
[2020-07-30] MEDS: FOLIC ACID 1 MG TABLET 2 MG PO (10:21)
[2020-07-30] MEDS: ASCORBIC ACID 500 MG TABLET 1000 MG PO (10:21)
[2020-07-30] MEDS: lisinopriL 20 MG TABLET PO (10:22)
[2020-07-30] MEDS: NEOMYCIN/POLYMYXIN/BACITRACIN OINTMENT 15 GM TUBE 1 APPLIC TOPICAL (10:24)
[2020-07-30] MEDS: MAGNESIUM OXIDE 400 MG TABLET PO ×2 (10:24→19:59)
[2020-07-30] MEDS: predniSONE 5 MG TABLET PO (10:25)
[2020-07-30] MEDS: polyethylene glycoL 3350 17 GM POWD.PACK PO (10:25)
[2020-07-30] MEDS: PREGABALIN (*CRX) 75 MG CAPSULE 150 MG PO (10:30)
[2020-07-30 14:00] VITALS: BP 114/62; PULSE 77; RESP 20; TEMP 36.3; O2SAT 100
[2020-07-30 22:00] VITALS: BP 124/80; PULSE 80; RESP 16; TEMP 36.2; O2SAT 100
[2020-07-31] MEDS: oxyCODONE/ACETAMINOPHEN (*CRX) 5-325 MG TABLET 2 TABLET PO ×5 (04:39→21:49)
[2020-07-31 05:30] LABS: Hematocrit 29.8 % (37.0-47.0); Hemoglobin 9.1 g/dL (12.0-15.0); Mean Corpuscular HGB Conc 30.5 g/dl (32-36); Mean Corpuscular Hemoglobin 30.6 pg (26-34); Mean Corpuscular Volume 100.3 fl (80-100); Platelet Count Result 381 k/mm3 (150-375); Red Blood Count 2.97 M/mm3 (4.2-5.4); White Blood Count 9.6 K/mm3 (4.5-10.0)
[2020-07-31 05:41] LABS: Anion Gap 4 mmol/L (8-16); Blood Urea Nitrogen 31 mg/dL (7-17); Calcium 9.5 mg/dL (8.4-10.2); Carbon Dioxide 30 mmol/L (22-30); Chloride 103 mmol/L (98-107); Estimated CRCL calculation 72 ml/min; Estimated Glomerular Filt Rate > 60; Glucose 96 mg/dL (65-105); Potassium 4.1 mmol/L (3.4-5.0); Sodium 137 mmol/L (137-145)
[2020-07-31] MEDS: PANTOPRAZOLE 40 MG TABLET PO (05:57)
[2020-07-31 06:00] VITALS: BP 147/93; PULSE 88; RESP 18; TEMP 36.3; O2SAT 100
[2020-07-31 06:39] LABS: Atypical Lymphocytes Present; Hypochromasia 1+ (NORMAL); Large Platelets Present; Monocytes Absolute Manual 0.67 K/mm3 (0.1-0.90); Monocytes Percent Manual 7 % (3-9); Neutrophils Percent Manual 69 % (46-73); Ovalocytes 1+ (NORMAL); Platelet Estimate Adequate (Adequate); Smudge Cells PRESENT; Tear Drop Cells 1+ (NORMAL); Total Cells Counted 100
[2020-07-31] MEDS: CYCLOBENZAPRINE HCL 10 MG TABLET PO ×3 (09:24→21:49)
[2020-07-31] MEDS: polyethylene glycoL 3350 17 GM POWD.PACK PO (09:25)
[2020-07-31] MEDS: CHOLECALCIFEROL 1,000 UNITS TABLET 5000 UNITS PO (09:25)
[2020-07-31] MEDS: AMOXICILLIN/CLAVULANATE K 875-125 MG TAB 1 TABLET PO ×2 (09:25→23:19)
[2020-07-31] MEDS: MAGNESIUM OXIDE 400 MG TABLET PO ×2 (09:25→23:19)
[2020-07-31] MEDS: PREGABALIN (*CRX) 75 MG CAPSULE 150 MG PO (09:25)
[2020-07-31] MEDS: FOLIC ACID 1 MG TABLET 2 MG PO (09:25)
[2020-07-31] MEDS: FERROUS SULFATE 324 MG TABLET PO ×2 (09:26→17:55)
[2020-07-31] MEDS: ASPIRIN 325 MG ENTERIC TABLET PO (09:26)
[2020-07-31] MEDS: LIDOCAINE 5% PATCH 1 PATCH TRANSDERM ×2 (09:26→09:27)
[2020-07-31] MEDS: ASCORBIC ACID 500 MG TABLET 1000 MG PO (09:26)
[2020-07-31] MEDS: lisinopriL 20 MG TABLET PO (09:27)
[2020-07-31] MEDS: predniSONE 5 MG TABLET PO (09:27)
[2020-07-31] MEDS: NEOMYCIN/POLYMYXIN/BACITRACIN OINTMENT 15 GM TUBE 1 APPLIC TOPICAL (09:27)
--- NOTE | 2020-07-31 12:47 | WPDNEURORHBP ---
Subjective Date/time seen: 07/31/20 12:47 55 years old with history of right total knee arthroplasty in addition to severe rheumatoid arthritis with osteoarthritis has also been experiencing chronic pain but recently the pain is under control and she is more comfortable today the swelling has subsided of the interphalangeal joints, afebrile with temp of 36.3? pulse 88 respiration 18 pulse ox 100 on room air and blood pressure 147/93 elevated as compared to yesterday Review of Systems Review of Systems: All systems reviewed & are unremarkable except as noted in HPI and below Functional Status Ambulation Ability Ability to Ambulate 10 Feet: Contact Guard Ambulation Assistive Devices: Parallel Bars and Walker, Wheeled Exam Const: General: cooperative, comfortable and no acute distress Orientation/consciousness: patient oriented x3 Limitations: physical limitations HENMT: Ears: hearing grossly normal bilaterally General nose exam: Normal external nose present and No nasal discharge present Face and sinus: normal facial exam Mouth: Yes Normal oral and palatal mucosa present Eyes: General: appearance normal, both eyes and all related structures Neck: Neck: full ROM Carotids: normal carotid upstroke Cardio: Jugular venous distension: no JVD Rate: regular rate Rhythm: regular rhythm GI: Auscultation: normal bowel sounds Skin: General skin exam: no rashes or lesions noted Neuro: General: patient oriented x3 Cranial nerves: Yes CN's II-XII intact bilaterally Cognition (Neuro): normal cognition Speech: normal speech Motor exam (neuro): Abnormal motor strength present ( generally decreased) Sensory Exam: Sensory deficit (Neuro) Plantar Reflex Responses: downgoing: bilateral Coordination: [id number] test normal Psych: Appearance: grossly normal Objective Data Vital Signs Vital Signs: Vital Signs - 24 hr 07/30/20 14:00 07/30/20 22:00 07/31/20 06:00 Temperature 36.3 C L 36.2 C L 36.3 C L Pulse Rate 77 80 88 Respiratory Rate 20 16 18 Blood Pressure 114/62 124/80 147/93 H Pulse Oximetry 100 100 100 Intake/Output Intake/Output: Intake & Output 07/28/20 07/29/20 07/30/20 07/31/20 23:59 23:59 23:59 23:59 Intake Total 680 286 4990 480 Balance 008 350 7207 480 Meds/Results Medications: Active Medications Generic Name Dose Route Start Last Admin Trade Name Freq PRN Reason Stop Dose Admin Acetaminophen/Aspirin/Caffeine 1 tablet 07/23/20 18:25 Acetaminophen/Aspirin/Caffeine 250-250-65 Mg Tablet PO DAILY PRN Migraine Headache Amoxicillin/Clavulanate Potassium 1 tablet 07/28/20 21:00 07/31/20 09:25 Amoxicillin/Clavulanate K 875-125 Mg Tab PO 08/07/20 09:01 1 tablet Q12HR JOSIAH Administration Ascorbic Acid 1,000 mg 07/24/20 09:00 07/31/20 09:26 Ascorbic Acid 500 Mg Tablet PO 1,000 mg DAILY JOSIAH Administration Aspirin 325 mg 07/24/20 09:00 07/31/20 09:26 Aspirin 325 Mg Enteric Tablet PO 08/22/20 09:01 325 mg DAILY JOSIAH Administration Benzocaine 1 lozenge 07/23/20 23:26 07/24/20 23:44 Benzocaine/Menthol (*Bkc) 18 Ea Lozenge PO 1 lozenge PRN PRN Administration Sore Throat Calcium Carbonate 500 mg 07/23/20 18:25 Calcium Carbonate (Tums) 500 Mg (200 Mg Elemental) PO Q4H PRN Indigestion Cyclobenzaprine HCl 10 mg 07/23/20 18:25 07/31/20 09:24 Cyclobenzaprine Hcl 10 Mg Tablet PO 10 mg TID PRN Administration muscle spasm Ferrous Sulfate 324 mg 07/23/20 18:45 07/31/20 09:26 Ferrous Sulfate 324 Mg Tablet PO 324 mg BIDWM JOSIAH Administration Folic Acid 2 mg 07/24/20 09:00 07/31/20 09:25 Folic Acid 1 Mg Tablet PO 2 mg DAILY JOSIAH Administration Lidocaine 1 patch 07/24/20 12:24 07/31/20 09:26 Lidocaine 5% Patch TRANSDERM 1 patch DAILY JOSIAH Administration Lidocaine 1 patch 07/24/20 12:27 07/31/20 09:27 Lidocaine 5% Patch TRANSDERM 1 patch DAILY JOSIAH Administration Lisinopril 20 mg
--- NOTE | 2020-07-31 12:52 | PCDIET ---
Nutrition Follow-Up Complete: No nutrition diagnosis at this time. Nutrition Goal: Patient to consume 75% of meals or greater. Goal met. Patient consuming 75-100% of meals on regular diet. Good appetite reported. Last recorded weight is 104.5 kg. Recommend obtaining new weight. Bowel Motility: BM x 1 on 07/30/20. Labs Reviewed: Hgb (9.1), Hct (29.8), BUN (31) Meds Noted: Augmentin, Vitamin C, Mag-Ox, Miralax, Ferrous Sulfate, Folic Acid, Lisinopril, Prednisone, Vitamin D Additional Notes: Right knee with dressing. No pressure sores. Will continue to monitor with same goal. Nutrition Monitoring and Evaluation: Follow up in 7 days.
[2020-07-31 14:00] VITALS: BP 109/60; PULSE 80; RESP 20; TEMP 36.4; O2SAT 100
[2020-07-31 22:00] VITALS: BP 109/71; PULSE 78; RESP 18; TEMP 36.3; O2SAT 100
[2020-08-01] MEDS: oxyCODONE/ACETAMINOPHEN (*CRX) 5-325 MG TABLET 2 TABLET PO ×4 (02:43→21:04)
[2020-08-01 04:29] VITALS: BP 116/72; PULSE 70; RESP 18; TEMP 35.9; O2SAT 99
[2020-08-01] MEDS: PANTOPRAZOLE 40 MG TABLET PO (05:54)
[2020-08-01] MEDS: polyethylene glycoL 3350 17 GM POWD.PACK PO (08:30)
[2020-08-01] MEDS: PREGABALIN (*CRX) 75 MG CAPSULE 150 MG PO ×2 (08:30→12:27)
[2020-08-01] MEDS: NEOMYCIN/POLYMYXIN/BACITRACIN OINTMENT 15 GM TUBE 1 APPLIC TOPICAL (08:30)
[2020-08-01] MEDS: LIDOCAINE 5% PATCH 1 PATCH TRANSDERM ×2 (08:31)
[2020-08-01] MEDS: CYCLOBENZAPRINE HCL 10 MG TABLET PO ×2 (08:31→21:07)
[2020-08-01] MEDS: MAGNESIUM OXIDE 400 MG TABLET PO ×2 (08:33→21:09)
[2020-08-01] MEDS: FOLIC ACID 1 MG TABLET 2 MG PO (08:33)
[2020-08-01] MEDS: lisinopriL 20 MG TABLET PO (08:33)
[2020-08-01] MEDS: CHOLECALCIFEROL 1,000 UNITS TABLET 5000 UNITS PO (08:33)
[2020-08-01] MEDS: predniSONE 5 MG TABLET PO (08:33)
[2020-08-01] MEDS: ASPIRIN 325 MG ENTERIC TABLET PO (08:33)
[2020-08-01] MEDS: AMOXICILLIN/CLAVULANATE K 875-125 MG TAB 1 TABLET PO ×2 (08:34→21:08)
[2020-08-01] MEDS: FERROUS SULFATE 324 MG TABLET PO ×2 (08:34→17:41)
[2020-08-01] MEDS: ASCORBIC ACID 500 MG TABLET 1000 MG PO (08:34)
--- NOTE | 2020-08-01 11:07 | PCOTNOTE ---
pt declined OT treatment at this time due to pain, will continue to attempt.
[2020-08-01] MEDS: ONDANSETRON HCL ODT 4 MG TABLET PO (11:41)
[2020-08-01] MEDS: CALCIUM CARBONATE (TUMS) 500 MG (200 MG ELEMENTAL) PO (11:41)
--- NOTE | 2020-08-01 11:45 | PCOTNOTE ---
Patient declined OT treatment at this time due to pain and nausea. Nursing with patient and is addressing patient complaints, will continue to attempt.
[2020-08-01 14:00] VITALS: BP 107/55; PULSE 97; RESP 20; TEMP 37.2; O2SAT 99
[2020-08-01] MEDS: methylPREDNISolone (MEDROL) DOSEPACK 4 MG TABLETS PO ×4 (14:19→21:10)
[2020-08-01] MEDS: diphenhydrAMINE HCl CAP 25 MG CAPSULE PO (14:31)
[2020-08-01 20:20] VITALS: PULSE 78; RESP 18; O2SAT 98
[2020-08-01 22:00] VITALS: BP 112/54; PULSE 78; RESP 18; TEMP 36.4; O2SAT 98
[2020-08-02 05:08] VITALS: BP 106/62; PULSE 80; RESP 18; TEMP 36.4; O2SAT 99
[2020-08-02] MEDS: methylPREDNISolone (MEDROL) DOSEPACK 4 MG TABLETS PO ×4 (06:08→20:22)
[2020-08-02] MEDS: PANTOPRAZOLE 40 MG TABLET PO (06:08)
[2020-08-02 08:00] VITALS: PULSE 90; RESP 20; O2SAT 100
[2020-08-02] MEDS: ASCORBIC ACID 500 MG TABLET 1000 MG PO (09:48)
[2020-08-02] MEDS: AMOXICILLIN/CLAVULANATE K 875-125 MG TAB 1 TABLET PO ×2 (09:48→20:21)
[2020-08-02] MEDS: FERROUS SULFATE 324 MG TABLET PO ×2 (09:48→17:14)
[2020-08-02] MEDS: lisinopriL 20 MG TABLET PO (09:49)
[2020-08-02] MEDS: CHOLECALCIFEROL 1,000 UNITS TABLET 5000 UNITS PO (09:49)
[2020-08-02] MEDS: MAGNESIUM OXIDE 400 MG TABLET PO ×2 (09:49→20:20)
[2020-08-02] MEDS: ASPIRIN 325 MG ENTERIC TABLET PO (09:49)
[2020-08-02] MEDS: FOLIC ACID 1 MG TABLET 2 MG PO (09:49)
[2020-08-02] MEDS: oxyCODONE/ACETAMINOPHEN (*CRX) 5-325 MG TABLET 2 TABLET PO ×3 (09:50→20:59)
[2020-08-02] MEDS: predniSONE 5 MG TABLET PO (09:50)
[2020-08-02] MEDS: PREGABALIN (*CRX) 75 MG CAPSULE 150 MG PO ×2 (09:53→14:18)
[2020-08-02] MEDS: polyethylene glycoL 3350 17 GM POWD.PACK PO (09:53)
[2020-08-02] MEDS: NEOMYCIN/POLYMYXIN/BACITRACIN OINTMENT 15 GM TUBE 1 APPLIC TOPICAL (09:58)
[2020-08-02 14:00] VITALS: BP 136/80; PULSE 90; RESP 20; TEMP 36.4; O2SAT 100
--- NOTE | 2020-08-02 14:50 | WPDNEURORHBP ---
Subjective Date/time seen: 08/02/20 14:50 55 years old with right total knee arthroplasty in addition to the underlying rheumatoid arthritis with osteoarthritis as intermittent aggravation because of the pain and discomfort though recently she has been restarted on Medrol Dosepak and has been feeling better, remains afebrile with temp of 36.4? pulse 80 respiration 18 pulse ox 99 on the room air and a blood pressure 106/60, no new lab Functional Status Ambulation Ability Ability to Ambulate 10 Feet: Contact Guard Ambulation Assistive Devices: Walker, Wheeled Exam Const: General: cooperative and comfortable Nutritional Appearance: obese and overweight Orientation/consciousness: patient oriented x3 Limitations: behavioral limitations and physical limitations HENMT: Head: normocephalic Ears: hearing grossly normal bilaterally General nose exam: Normal external nose present and No nasal discharge present Face and sinus: normal facial exam Mouth: Yes Normal oral and palatal mucosa present Neck: Neck: full ROM Resp: Auscultation: clear to auscultation bilaterally Cardio: Rate: regular rate Rhythm: regular rhythm GI: Auscultation: normal bowel sounds Skin: General skin exam: no rashes or lesions noted Neuro: General: patient oriented x3 Cranial nerves: Yes CN's II-XII intact bilaterally Cognition (Neuro): normal cognition Gait exam (Neuro): Assisted gait required Motor exam (neuro): Pronator motor function not present, Abnormal motor strength present ( generally decreased as well because of underlying polyarthralgia) and Abnormal muscle tone present Sensory Exam: Sensory deficit (Neuro) Coordination: [id number] test normal Psych: Appearance: grossly normal Objective Data Vital Signs Vital Signs: Vital Signs - 24 hr 08/01/20 20:20 08/01/20 22:00 08/02/20 05:08 Temperature 36.4 C 36.4 C Pulse Rate 78 78 80 Respiratory Rate 18 18 18 Blood Pressure 112/54 L 106/62 Pulse Oximetry 98 98 99 Intake/Output Intake/Output: Intake & Output 07/30/20 07/31/20 08/01/20 08/02/20 23:59 23:59 23:59 23:59 Intake Total 1440 1440 720 360 Balance 1440 1440 720 360 Meds/Results Medications: Active Medications Generic Name Dose Route Start Last Admin Trade Name Freq PRN Reason Stop Dose Admin Acetaminophen/Aspirin/Caffeine 1 tablet 07/23/20 18:25 Acetaminophen/Aspirin/Caffeine 250-250-65 Mg Tablet PO DAILY PRN Migraine Headache Amoxicillin/Clavulanate Potassium 1 tablet 07/28/20 21:00 08/02/20 09:48 Amoxicillin/Clavulanate K 875-125 Mg Tab PO 08/07/20 09:01 1 tablet Q12HR JOSIAH Administration Ascorbic Acid 1,000 mg 07/24/20 09:00 08/02/20 09:48 Ascorbic Acid 500 Mg Tablet PO 1,000 mg DAILY JOSIAH Administration Aspirin 325 mg 07/24/20 09:00 08/02/20 09:49 Aspirin 325 Mg Enteric Tablet PO 08/22/20 09:01 325 mg DAILY JOSIAH Administration Benzocaine 1 lozenge 07/23/20 23:26 07/24/20 23:44 Benzocaine/Menthol (*Bkc) 18 Ea Lozenge PO 1 lozenge PRN PRN Administration Sore Throat Calcium Carbonate 500 mg 07/23/20 18:25 08/01/20 11:41 Calcium Carbonate (Tums) 500 Mg (200 Mg Elemental) PO 500 mg Q4H PRN Administration Indigestion Cyclobenzaprine HCl 10 mg 07/23/20 18:25 08/01/20 21:07 Cyclobenzaprine Hcl 10 Mg Tablet PO 10 mg TID PRN Administration muscle spasm Diphenhydramine HCl 25 mg 08/01/20 14:21 08/01/20 14:31 Diphenhydramine Hcl Cap 25 Mg Capsule PO 25 mg Q6H PRN Administration Itching Ferrous Sulfate 324 mg 07/23/20 18:45 08/02/20 09:48 Ferrous Sulfate 324 Mg Tablet PO 324 mg BIDWM [facility] Administration Folic Acid 2 mg 07/24/20 09:00 08/02/20 09:49 Folic Acid 1 Mg Tablet PO 2 mg DAILY [facility] Administration Lidocaine 1 patch 07/24/20 12:24 08/02/20 10:40 Lidocaine 5% Patch TRANSDERM Not Given DAILY [facility] Lidocaine 1 patch 07/24/20 12:27 08/02/20 10:41 Lidocaine 5% Patch T
[2020-08-02 20:55] VITALS: PULSE 85; RESP 18; O2SAT 99
[2020-08-02] MEDS: CYCLOBENZAPRINE HCL 10 MG TABLET PO (21:00)
[2020-08-02 21:37] VITALS: BP 115/65; PULSE 85; RESP 18; TEMP 36.4; O2SAT 99
[2020-08-03 04:41] VITALS: BP 109/62; PULSE 74; RESP 18; TEMP 36.3; O2SAT 97
[2020-08-03] MEDS: methylPREDNISolone (MEDROL) DOSEPACK 4 MG TABLETS PO ×4 (06:10→20:09)
[2020-08-03] MEDS: oxyCODONE/ACETAMINOPHEN (*CRX) 5-325 MG TABLET 2 TABLET PO ×3 (06:15→20:08)
[2020-08-03] MEDS: PANTOPRAZOLE 40 MG TABLET PO (06:15)
[2020-08-03] MEDS: LIDOCAINE 5% PATCH 1 PATCH TRANSDERM ×2 (09:29)
[2020-08-03] MEDS: CHOLECALCIFEROL 1,000 UNITS TABLET 5000 UNITS PO (09:30)
[2020-08-03] MEDS: ASPIRIN 325 MG ENTERIC TABLET PO (09:31)
[2020-08-03] MEDS: FERROUS SULFATE 324 MG TABLET PO ×2 (09:31→18:03)
[2020-08-03] MEDS: AMOXICILLIN/CLAVULANATE K 875-125 MG TAB 1 TABLET PO ×2 (09:31→20:08)
[2020-08-03] MEDS: MAGNESIUM OXIDE 400 MG TABLET PO ×2 (09:31→20:08)
[2020-08-03] MEDS: ASCORBIC ACID 500 MG TABLET 1000 MG PO (09:31)
[2020-08-03] MEDS: FOLIC ACID 1 MG TABLET 2 MG PO (09:31)
[2020-08-03] MEDS: NEOMYCIN/POLYMYXIN/BACITRACIN OINTMENT 15 GM TUBE 1 APPLIC TOPICAL (09:32)
[2020-08-03] MEDS: PREGABALIN (*CRX) 75 MG CAPSULE 150 MG PO (09:32)
[2020-08-03] MEDS: polyethylene glycoL 3350 17 GM POWD.PACK PO (09:32)
[2020-08-03] MEDS: predniSONE 5 MG TABLET PO (09:32)
[2020-08-03] MEDS: lisinopriL 20 MG TABLET PO (09:32)
[2020-08-03] MEDS: CYCLOBENZAPRINE HCL 10 MG TABLET PO ×2 (11:10→21:09)
[2020-08-03 14:00] VITALS: BP 125/67; PULSE 88; RESP 20; TEMP 36.4; O2SAT 100
[2020-08-03 21:23] VITALS: BP 127/66; PULSE 94; RESP 20; TEMP 36.9; O2SAT 98
[2020-08-04 05:27] VITALS: BP 140/90; PULSE 81; RESP 22; TEMP 35.8; O2SAT 100
[2020-08-04] MEDS: methylPREDNISolone (MEDROL) DOSEPACK 4 MG TABLETS PO ×3 (06:05→20:03)
[2020-08-04] MEDS: PANTOPRAZOLE 40 MG TABLET PO (06:05)
[2020-08-04] MEDS: oxyCODONE/ACETAMINOPHEN (*CRX) 5-325 MG TABLET 2 TABLET PO ×3 (07:56→21:35)
[2020-08-04] MEDS: FERROUS SULFATE 324 MG TABLET PO ×2 (08:46→17:18)
[2020-08-04] MEDS: CHOLECALCIFEROL 1,000 UNITS TABLET 5000 UNITS PO (08:47)
[2020-08-04] MEDS: PREGABALIN (*CRX) 75 MG CAPSULE 150 MG PO ×2 (08:47→15:04)
[2020-08-04] MEDS: AMOXICILLIN/CLAVULANATE K 875-125 MG TAB 1 TABLET PO ×2 (08:47→20:03)
[2020-08-04] MEDS: ASCORBIC ACID 500 MG TABLET 1000 MG PO (08:47)
[2020-08-04] MEDS: lisinopriL 20 MG TABLET PO (08:47)
[2020-08-04] MEDS: FOLIC ACID 1 MG TABLET 2 MG PO (08:47)
[2020-08-04] MEDS: MAGNESIUM OXIDE 400 MG TABLET PO ×2 (08:48→20:03)
[2020-08-04] MEDS: predniSONE 5 MG TABLET PO (08:48)
[2020-08-04] MEDS: ASPIRIN 325 MG ENTERIC TABLET PO (08:48)
[2020-08-04] MEDS: polyethylene glycoL 3350 17 GM POWD.PACK PO (08:51)
[2020-08-04] MEDS: NEOMYCIN/POLYMYXIN/BACITRACIN OINTMENT 15 GM TUBE 1 APPLIC TOPICAL (08:51)
[2020-08-04] MEDS: LIDOCAINE 5% PATCH 1 PATCH TRANSDERM ×2 (08:54)
--- NOTE | 2020-08-04 10:09 | WPDNEURORHBP ---
Subjective Date/time seen: 55 years old is status post right total knee arthroplasty, rheumatoid arthritis, osteoarthritis, chronic intermittent pain with acute exacerbation because of underlying rheumatoid which is also resulting in the swelling of the small joints of the hands has been involved in the therapy has also been started on Medrol Dosepak feels much better today Review of Systems Review of Systems: All systems reviewed & are unremarkable except as noted in HPI and below Functional Status Ambulation Ability Ability to Ambulate 10 Feet: Contact Guard Ambulation Assistive Devices: Walker, Wheeled Exam Const: General: no acute distress Nutritional Appearance: overweight Orientation/consciousness: oriented to person, oriented to place and oriented to time Limitations: physical limitations HENMT: Head: normocephalic Ears: hearing grossly normal bilaterally General nose exam: Normal external nose present and No nasal discharge present Face and sinus: normal facial exam Mouth: Yes Normal oral and palatal mucosa present Eyes: General: appearance normal, both eyes and all related structures Neck: Neck: full ROM Resp: Effort & Inspection: normal respiratory effort and able to speak in complete sentences Auscultation: clear to auscultation bilaterally Cardio: Rate: regular rate Rhythm: regular rhythm GI: Auscultation: normal bowel sounds Neuro: General: patient oriented x3 Cranial nerves: Yes CN's II-XII intact bilaterally Cognition (Neuro): normal cognition Speech: normal speech Gait exam (Neuro): Assisted gait required Motor exam (neuro): 5/5 motor strength present throughout Sensory Exam: Sensory deficit (Neuro) Coordination: [id number] test normal Extrem: General: normal to inspection Right upper extremity: normal to inspection and Extremity exam: right hand ( interphalangeal joints somewhat swollen but better today) Psych: Appearance: grossly normal Mental Status: other ( happy today) Objective Data Vital Signs Vital Signs: Vital Signs - 24 hr 08/03/20 14:00 08/03/20 21:23 08/04/20 05:27 Temperature 36.4 C 36.9 C 35.8 C L Pulse Rate 88 94 81 Respiratory Rate 20 20 22 H Blood Pressure 125/67 127/66 140/90 Pulse Oximetry 100 98 100 Intake/Output Intake/Output: Intake & Output 08/01/20 08/02/20 08/03/20 08/04/20 23:59 23:59 23:59 23:59 Intake Total 720 1320 480 240 Balance 720 1320 480 240 Meds/Results Medications: Active Medications Generic Name Dose Route Start Last Admin Trade Name Lázaro PRN Reason Stop Dose Admin Acetaminophen/Aspirin/Caffeine 1 tablet 07/23/20 18:25 Acetaminophen/Aspirin/Caffeine 250-250-65 Mg Tablet PO DAILY PRN Migraine Headache Amoxicillin/Clavulanate Potassium 1 tablet 07/28/20 21:00 08/04/20 08:47 Amoxicillin/Clavulanate K 875-125 Mg Tab PO 08/07/20 09:01 1 tablet Q12HR JOSIAH Administration Ascorbic Acid 1,000 mg 07/24/20 09:00 08/04/20 08:47 Ascorbic Acid 500 Mg Tablet PO 1,000 mg DAILY JOSIAH Administration Aspirin 325 mg 07/24/20 09:00 08/04/20 08:48 Aspirin 325 Mg Enteric Tablet PO 08/22/20 09:01 325 mg DAILY JOSIAH Administration Benzocaine 1 lozenge 07/23/20 23:26 07/24/20 23:44 Benzocaine/Menthol (*Bkc) 18 Ea Lozenge PO 1 lozenge PRN PRN Administration Sore Throat Calcium Carbonate 500 mg 07/23/20 18:25 08/01/20 11:41 Calcium Carbonate (Tums) 500 Mg (200 Mg Elemental) PO 500 mg Q4H PRN Administration Indigestion Cyclobenzaprine HCl 10 mg 07/23/20 18:25 08/03/20 21:09 Cyclobenzaprine Hcl 10 Mg Tablet PO 10 mg TID PRN Administration muscle spasm Diphenhydramine HCl 25 mg 08/01/20 14:21 08/01/20 14:31 Diphenhydramine Hcl Cap 25 Mg Capsule PO 25 mg Q6H PRN Administration Itching Ferrous Sulfate 324 mg 07/23/20 18:45 08/04/20 08:46 Ferrous Sulfate 324 Mg Tablet PO 324 mg BIDWM JOSIAH Administration Folic Acid 2 mg 07/24/20 09:00
[2020-08-04] MEDS: CYCLOBENZAPRINE HCL 10 MG TABLET PO ×2 (13:27→22:23)
[2020-08-04 14:00] VITALS: BP 126/68; PULSE 80; RESP 20; TEMP 35.9; O2SAT 100
--- NOTE | 2020-08-04 15:46 | PCPTNOTE ---
Kiah Hansen PTA completed an inpatient rehab wheelchair evaluation on Natividad Rodriges on 08/04/2020. The patient is unable to safely and independently ambulate household distances due to their current impairments. Their diagnosis is Right Total Knee and their impairments include decreased strength, decreased endurance, decreased range of motion, decreased balance,and lower extremity weakness. Natividad's weight bearing status is weight-bearing as tolerated on the bilateral lower legs. The patient demonstrates significant functional mobility limitations that impair their ability to participate in mobility-related activities of daily living (MRADLs), including toileting, feeding, dressing, grooming, and bathing in the customary locations in the home. These limitations cannot be sufficiently resolved by the use of an appropriately fitted cane or walker. It is recommended that the patient utilize a wheelchair for functional mobility within the home in order to facilitate optimal safety, independence and participation in all MRADL's and adequately access their home environment on a regular basis. The patient's home provides adequate access between rooms, maneuvering space, and surfaces to accommodate the recommended wheelchair. The use of a wheelchair for functional mobility is strongly recommended and the patient is receptive to using the wheelchair. The use of this wheelchair will significantly improve the patient's ability to participate in MRADLS and the patient will use it on a regular basis in the home. This will facilitate optimal safety, independence, and participation. The patient has demonstrated sufficient physical and mental capabilities needed to safely propel a manual wheelchair that is provided in the home during a typical day. Recommended Wheelchair Frame: STANDARD Recommended Wheelchair Size: 18 X 18 Recommended Wheelchair Cushion: STANDARD Wheelchair Leg Recommendations: BILATERAL ELEVATING SWING AWAY LEG RESTS - Elevating legrests are recommended because the patient has significant edema of the lower extremities that requires an elevating legrest. -Anti-tippers are recommended due to patient demonstrating increased risk for falls. They would benefit from anti-tippers with added safety and stabilization. Kiah Hansen PTA 08/04/20 Evaluating Therapist Date I agree with and certify that the above recommendation is medically necessary. Referring Physician Date I agree with and certify that the above recommendation is medically necessary. Referring Physician Date
[2020-08-04 21:19] VITALS: BP 116/73; PULSE 82; RESP 20; TEMP 35.9; O2SAT 100
[2020-08-04 21:33] VITALS: BP 116/73; PULSE 82; RESP 20; TEMP 35.9; O2SAT 100
[2020-08-05] MEDS: methylPREDNISolone (MEDROL) DOSEPACK 4 MG TABLETS PO ×2 (05:28→20:49)
[2020-08-05] MEDS: PANTOPRAZOLE 40 MG TABLET PO (05:28)
[2020-08-05 05:38] VITALS: BP 123/75; PULSE 67; RESP 20; TEMP 36; O2SAT 100
[2020-08-05] MEDS: AMOXICILLIN/CLAVULANATE K 875-125 MG TAB 1 TABLET PO ×2 (07:28→21:00)
[2020-08-05] MEDS: FERROUS SULFATE 324 MG TABLET PO ×2 (07:28→17:17)
[2020-08-05] MEDS: ASCORBIC ACID 500 MG TABLET 1000 MG PO (07:28)
[2020-08-05] MEDS: lisinopriL 20 MG TABLET PO (07:29)
[2020-08-05] MEDS: ASPIRIN 325 MG ENTERIC TABLET PO (07:29)
[2020-08-05] MEDS: FOLIC ACID 1 MG TABLET 2 MG PO (07:29)
[2020-08-05] MEDS: CHOLECALCIFEROL 1,000 UNITS TABLET 5000 UNITS PO (07:29)
[2020-08-05] MEDS: MAGNESIUM OXIDE 400 MG TABLET PO ×2 (07:29→20:49)
[2020-08-05] MEDS: predniSONE 5 MG TABLET PO (07:30)
[2020-08-05] MEDS: LIDOCAINE 5% PATCH 1 PATCH TRANSDERM ×2 (07:30)
[2020-08-05] MEDS: polyethylene glycoL 3350 17 GM POWD.PACK PO (07:31)
[2020-08-05] MEDS: PREGABALIN (*CRX) 75 MG CAPSULE 150 MG PO ×2 (07:31→14:32)
[2020-08-05] MEDS: NEOMYCIN/POLYMYXIN/BACITRACIN OINTMENT 15 GM TUBE 1 APPLIC TOPICAL (07:31)
[2020-08-05] MEDS: oxyCODONE/ACETAMINOPHEN (*CRX) 5-325 MG TABLET 2 TABLET PO ×4 (07:31→22:51)
[2020-08-05] MEDS: CYCLOBENZAPRINE HCL 10 MG TABLET PO ×2 (07:31→22:51)
[2020-08-05 14:00] VITALS: BP 124/99; PULSE 88; RESP 20; TEMP 36.3; O2SAT 100
--- NOTE | 2020-08-05 14:01 | WPDNEURORHBP ---
Subjective Date/time seen: 08/05/20 14:01 55 years old status post right total knee arthroplasty with underlying rheumatoid arthritis and osteoarthritis and also complains of intermittent significant pain she has been involved in the physical therapy and occupational therapy course has been complicated because of the underlying arthritic pain at present there is no new lab, patient remains afebrile with temp of 36.0? pulse 67 respirations 20 pulse ox 100 and blood pressure of 123/75 Review of Systems Review of Systems: All systems reviewed & are unremarkable except as noted in HPI and below Functional Status Ambulation Ability Ability to Ambulate 10 Feet: Contact Guard Ability to Ambulate 50 Feet With 2 Turns: Contact Guard Ambulation Assistive Devices: Walker, Wheeled Exam Const: General: cooperative and no acute distress Nutritional Appearance: overweight Orientation/consciousness: patient oriented x3 HENMT: Head: normocephalic Ears: hearing grossly normal bilaterally General nose exam: Normal external nose present Face and sinus: normal facial exam Mouth: Yes Normal oral and palatal mucosa present Eyes: General: appearance normal, both eyes and all related structures Alignment and Position: alignment normal Periorbital: periorbital findings normal Eyelids: eyelids normal Conjunctivae: conjunctivae normal Sclera: sclerae normal Cornea: corneas normal EOM: EOMs intact bilaterally Neck: Neck: full ROM and no lymphadenopathy Resp: Effort & Inspection: normal respiratory effort and able to speak in complete sentences Auscultation: clear to auscultation bilaterally Objective Data Vital Signs Vital Signs: Vital Signs - 24 hr 08/04/20 21:19 08/04/20 21:33 08/05/20 05:38 Temperature 35.9 C L 35.9 C L 36.0 C L Pulse Rate 82 82 67 Respiratory Rate 20 20 20 Blood Pressure 116/73 116/73 123/75 Pulse Oximetry 100 100 100 Intake/Output Intake/Output: Intake & Output 08/02/20 08/03/20 08/04/20 08/05/20 23:59 23:59 23:59 23:59 Intake Total 1320 480 720 960 Balance 1320 480 720 960 Meds/Results Medications: Active Medications Generic Name Dose Route Start Last Admin Trade Name Freq PRN Reason Stop Dose Admin Acetaminophen/Aspirin/Caffeine 1 tablet 07/23/20 18:25 Acetaminophen/Aspirin/Caffeine 250-250-65 Mg Tablet PO DAILY PRN Migraine Headache Amoxicillin/Clavulanate Potassium 1 tablet 07/28/20 21:00 08/05/20 07:28 Amoxicillin/Clavulanate K 875-125 Mg Tab PO 08/07/20 09:01 1 tablet Q12HR JOSIAH Administration Ascorbic Acid 1,000 mg 07/24/20 09:00 08/05/20 07:28 Ascorbic Acid 500 Mg Tablet PO 1,000 mg DAILY JOSIAH Administration Aspirin 325 mg 07/24/20 09:00 08/05/20 07:29 Aspirin 325 Mg Enteric Tablet PO 08/22/20 09:01 325 mg DAILY JOSIAH Administration Benzocaine 1 lozenge 07/23/20 23:26 07/24/20 23:44 Benzocaine/Menthol (*Bkc) 18 Ea Lozenge PO 1 lozenge PRN PRN Administration Sore Throat Calcium Carbonate 500 mg 07/23/20 18:25 08/01/20 11:41 Calcium Carbonate (Tums) 500 Mg (200 Mg Elemental) PO 500 mg Q4H PRN Administration Indigestion Cyclobenzaprine HCl 10 mg 07/23/20 18:25 08/05/20 07:31 Cyclobenzaprine Hcl 10 Mg Tablet PO 10 mg TID PRN Administration muscle spasm Diphenhydramine HCl 25 mg 08/01/20 14:21 08/01/20 14:31 Diphenhydramine Hcl Cap 25 Mg Capsule PO 25 mg Q6H PRN Administration Itching Ferrous Sulfate 324 mg 07/23/20 18:45 08/05/20 07:28 Ferrous Sulfate 324 Mg Tablet PO 324 mg BIDWM JOSIAH Administration Folic Acid 2 mg 07/24/20 09:00 08/05/20 07:29 Folic Acid 1 Mg Tablet PO 2 mg DAILY JOSIAH Administration Lidocaine 1 patch 07/24/20 12:24 08/05/20 07:30 Lidocaine 5% Patch TRANSDERM 1 patch DAILY JOSIAH Administration Lidocaine 1 patch 07/24/20 12:27 08/05/20 07:30 Lidocaine 5% Patch TRANSDERM 1 patch DAILY [facility] Administration Lisinopril 20 mg
[2020-08-05 22:00] VITALS: BP 131/75; PULSE 79; RESP 16; TEMP 36.1; O2SAT 100
[2020-08-06] MEDS: methylPREDNISolone (MEDROL) DOSEPACK 4 MG TABLETS PO (05:59)
[2020-08-06] MEDS: PANTOPRAZOLE 40 MG TABLET PO (05:59)
[2020-08-06 06:00] VITALS: BP 107/83; PULSE 77; RESP 18; TEMP 36; O2SAT 100
[2020-08-06] MEDS: AMOXICILLIN/CLAVULANATE K 875-125 MG TAB 1 TABLET PO ×2 (08:08→21:00)
[2020-08-06] MEDS: FOLIC ACID 1 MG TABLET 2 MG PO (08:08)
[2020-08-06] MEDS: FERROUS SULFATE 324 MG TABLET PO ×2 (08:08→17:10)
[2020-08-06] MEDS: CHOLECALCIFEROL 1,000 UNITS TABLET 5000 UNITS PO (08:09)
[2020-08-06] MEDS: ASPIRIN 325 MG ENTERIC TABLET PO (08:09)
[2020-08-06] MEDS: ASCORBIC ACID 500 MG TABLET 1000 MG PO (08:09)
[2020-08-06] MEDS: lisinopriL 20 MG TABLET PO (08:21)
[2020-08-06] MEDS: MAGNESIUM OXIDE 400 MG TABLET PO ×2 (08:21→21:00)
[2020-08-06] MEDS: predniSONE 5 MG TABLET PO (08:22)
[2020-08-06] MEDS: NEOMYCIN/POLYMYXIN/BACITRACIN OINTMENT 15 GM TUBE 1 APPLIC TOPICAL (08:24)
[2020-08-06] MEDS: PREGABALIN (*CRX) 75 MG CAPSULE 150 MG PO (08:24)
[2020-08-06] MEDS: oxyCODONE/ACETAMINOPHEN (*CRX) 5-325 MG TABLET 2 TABLET PO ×4 (08:34→22:43)
--- NOTE | 2020-08-06 11:35 | PCPTNOTE ---
Natividad Rodriges was evaluated for a wheeled walker on 08/06/2020 by this physical therapist administrative assistant receptionist. The wheeled walker will resolve patient's mobility limitations and will be used for ADL's within the home. The patient can safely use the wheeled walker. ?The wheeled walker will resolve the patient?s mobility deficits, including pain, decreased strength, decreased endurance. Kiah Hansen, ARTIST'S REPRESENTATIVE
[2020-08-06 14:00] VITALS: BP 133/83; PULSE 84; RESP 20; TEMP 36.7; O2SAT 100
--- NOTE | 2020-08-06 15:36 | WPDNEURORHBP ---
Subjective Date/time seen: 08/06/20 15:36 55 years old with right total knee arthroplasty in addition to underlying rheumatoid arthritis and osteoarthritis resulting in the chronic pain intermittently moderate and intermittently severe,Has been involved in a physical therapy and occupational therapy on a regular basis with planning to discharge her tomorrow to her home her condition has definitely significantly improved though during the hospitalization she required 2 courses of Medrol Dosepak because the intermittent swelling of the joints an increase in the severity of the pain Review of Systems Review of Systems: All systems reviewed & are unremarkable except as noted in HPI and below Functional Status Ambulation Ability Ability to Ambulate 10 Feet: Independent Ability to Ambulate 50 Feet With 2 Turns: Independent Ambulation Assistive Devices: Walker, Wheeled Exam Const: General: cooperative and no acute distress Nutritional Appearance: well nourished and overweight Orientation/consciousness: patient oriented x3 Limitations: physical limitations HENMT: Head: normocephalic Ears: hearing grossly normal bilaterally and external ears normal General nose exam: Normal external nose present Face and sinus: normal facial exam Mouth: Yes Normal oral and palatal mucosa present Eyes: General: appearance normal, both eyes and all related structures Periorbital: periorbital findings normal Eyelids: eyelids normal Conjunctivae: conjunctivae normal Sclera: sclerae normal Cornea: corneas normal Pupils: Equal, round and reactive pupils present EOM: EOMs intact bilaterally Neck: Neck: full ROM and no lymphadenopathy Carotids: normal carotid upstroke Resp: Effort & Inspection: normal respiratory effort and able to speak in complete sentences Auscultation: clear to auscultation bilaterally Cardio: Rate: regular rate GI: Auscultation: normal bowel sounds Skin: General skin exam: no rashes or lesions noted Neuro: General: patient oriented x3 Motor exam (neuro): 5/5 motor strength present throughout and Abnormal motor strength present ( generally decreased because a chronic conditions) Deep tendon reflexes (DTR's): Right triceps reflex intensity grade: 1+, Left triceps reflex intensity grade: 1+, Rt Biceps (C5, C6): 1+, Left biceps reflex intensity grade: 1+, Right brachioradialis reflex intensity grade: 1+, Left brachioradialis reflex intensity grade: 1+, Right patellar reflex intensity grade: 1+, Left patellar reflex intensity grade: 1+, Right ankle reflex intensity grade: 1+ and Left ankle reflex intensity grade: 1+ Plantar Reflex Responses: downgoing: bilateral Psych: Appearance: grossly normal Objective Data Vital Signs Vital Signs: Vital Signs - 24 hr 08/05/20 22:00 08/06/20 06:00 Temperature 36.1 C L 36.0 C L Pulse Rate 79 77 Respiratory Rate 16 18 Blood Pressure 131/75 107/83 Pulse Oximetry 100 100 Intake/Output Intake/Output: Intake & Output 08/03/20 08/04/20 08/05/20 08/06/20 23:59 23:59 23:59 23:59 Intake Total 050 371 2839 720 Balance 830 422 6731 720 Meds/Results Medications: Active Medications Generic Name Dose Route Start Last Admin Trade Name Freq PRN Reason Stop Dose Admin Acetaminophen/Aspirin/Caffeine 1 tablet 07/23/20 18:25 Acetaminophen/Aspirin/Caffeine 250-250-65 Mg Tablet PO DAILY PRN Migraine Headache Amoxicillin/Clavulanate Potassium 1 tablet 07/28/20 21:00 08/06/20 08:08 Amoxicillin/Clavulanate K 875-125 Mg Tab PO 08/07/20 09:01 1 tablet Q12HR JOSIAH Administration Ascorbic Acid 1,000 mg 07/24/20 09:00 08/06/20 08:09 Ascorbic Acid 500 Mg Tablet PO 1,000 mg DAILY JOSIAH Administration Aspirin 325 mg 07/24/20 09:00 08/06/20 08:09 Aspirin 325 Mg Enteric Tablet PO 08/22/20 09:01 325 mg DAILY JOSIAH Administration Benzocaine 1 lozenge 07/23/20 23:26 07/24/20 23:44 Benzocaine/Menthol (*Bkc) 18 Ea Lozenge PO 1 lozenge PRN PRN Administ
[2020-08-06 20:00] VITALS: PULSE 75; RESP 16; O2SAT 100
[2020-08-06 21:57] VITALS: BP 140/77; PULSE 75; RESP 16; TEMP 36.1; O2SAT 100
[2020-08-06] MEDS: CYCLOBENZAPRINE HCL 10 MG TABLET PO (22:43)
[2020-08-07 05:12] LABS: Basophils Percent Auto 0.4 % (0.2-1.2); Eosinophils Absolute Auto 0.2 K/mm3 (0-0.3); Eosinophils Percent Auto 2.7 % (0-4.4); Hematocrit 32.2 % (37.0-47.0); Hemoglobin 9.9 g/dL (12.0-15.0); Immature Granulocyte Absolute 0.32 K/mm3 (0.00-0.031); Immature Granulocyte Percent A 4.4 % (0-0.5); Lymphocytes Absolute Auto 2.66 K/mm3 (0.9-3.2); Lymphocytes Percent Auto 36.5 % (18.3-44.2); Mean Corpuscular HGB Conc 30.7 g/dl (32-36); Mean Corpuscular Hemoglobin 30.7 pg (26-34); Mean Platelet Volume 9.9 fl (7.4-10.4); Monocytes Absolute Auto 0.8 K/mm3 (0.1-0.6); Monocytes Percent Auto 11.5 % (2.6-8.5); Neutrophils Absolute Auto 3.2 K/mm3 (1.3-6.7); Neutrophils Percent Auto 44.5 % (45.5-73.1); Platelet Count Result 296 k/mm3 (150-375); Red Blood Count 3.22 M/mm3 (4.2-5.4); Red Cell Distribution Width 17.7 % (11.5-14.5); White Blood Count 7.3 K/mm3 (4.5-10.0)
[2020-08-07 05:17] LABS: Anion Gap 5 mmol/L (8-16); Blood Urea Nitrogen 25 mg/dL (7-17); Calcium 9.4 mg/dL (8.4-10.2); Carbon Dioxide 30 mmol/L (22-30); Chloride 103 mmol/L (98-107); Estimated CRCL calculation 65 ml/min; Estimated Glomerular Filt Rate 57; Glucose 94 mg/dL (65-105); Potassium 4.2 mmol/L (3.4-5.0); Sodium 138 mmol/L (137-145)
[2020-08-07 05:56] VITALS: BP 124/76; PULSE 72; RESP 16; TEMP 36.4; O2SAT 100
[2020-08-07] MEDS: PANTOPRAZOLE 40 MG TABLET PO (06:03)
[2020-08-07] MEDS: oxyCODONE/ACETAMINOPHEN (*CRX) 5-325 MG TABLET 2 TABLET PO ×3 (06:08→17:14)
[2020-08-07] MEDS: ASCORBIC ACID 500 MG TABLET 1000 MG PO (08:22)
[2020-08-07] MEDS: lisinopriL 20 MG TABLET PO (08:22)
[2020-08-07] MEDS: predniSONE 5 MG TABLET PO (08:22)
[2020-08-07] MEDS: MAGNESIUM OXIDE 400 MG TABLET PO (08:22)
[2020-08-07] MEDS: CHOLECALCIFEROL 1,000 UNITS TABLET 5000 UNITS PO (08:22)
[2020-08-07] MEDS: ASPIRIN 325 MG ENTERIC TABLET PO (08:22)
[2020-08-07] MEDS: FOLIC ACID 1 MG TABLET 2 MG PO (08:22)
[2020-08-07] MEDS: NEOMYCIN/POLYMYXIN/BACITRACIN OINTMENT 15 GM TUBE 1 APPLIC TOPICAL (08:23)
[2020-08-07] MEDS: FERROUS SULFATE 324 MG TABLET PO ×2 (08:23→17:14)
[2020-08-07] MEDS: AMOXICILLIN/CLAVULANATE K 875-125 MG TAB 1 TABLET PO (08:24)
[2020-08-07] MEDS: PREGABALIN (*CRX) 75 MG CAPSULE 150 MG PO (08:26)
--- NOTE | 2020-08-07 11:18 | PCDIET ---
Nutrition Follow-Up Complete: No nutrition diagnosis at this time. Nutrition Goal: Patient to consume 75% of meals or greater. Goal met. Patient preparing to discharge today. Has continued to eat 75-100% of meals on regular diet. Last recorded weight is 104.5 kg. Bowel Motility: Last documented BM on 08/05/20. Labs Reviewed: Hgb (9.9), Hct (32.2) Meds Noted: Vitamin C, Ferrous Sulfate, Folic Acid, Prinivil, Protonix, Vitamin D, Mag-Ox, Prednisone Additional Notes: No documented pressure sores. Right knee with surgical site. Will continue to monitor with same goal if patient remains in house. Nutrition Monitoring and Evaluation: Follow up in 7 days.
[2020-08-07 14:00] VITALS: BP 130/76; PULSE 86; RESP 18; TEMP 36.5; O2SAT 100
--- NOTE | 2020-08-08 13:41 | PM.DS ---
DS: Admitting Diagnosis Admitting Diagnosis Admitting Diagnosis: status post right total knee arthroplasty DS: Summary Hospital Course Hospital Course: gradual improvement in the functional abilities but continuation of the pain because of the underlying rheumatoid arthritis requiring the pain medication and the course of Medrol Dosepak Time Spent with Patient Time attestation: ADMISSION FUNCTION: 55-year-old right-handed female admitted to the acute rehab of [facility] with primary rehab impairment category of orthopedic that his lower extremity joint replacement and etiological diagnosis of right knee rheumatoid arthritis and osteoarthritis in addition to the comorbid conditions of 1. Hypertension 2. Long-term history of rheumatoid arthritis going back to more than 6 years and the history of treatment with methotrexate prednisone and meloxicam along with intra-articular injection 3. No COVID. At the time of admission her functional measures were as follows Eating [Set Up Only] Oral Care substantial Toileting Hygiene partial assistance Shower/Bathing patient refused Upper Body Dressing set up Lower Body Dressing substantial Donning/[place] Footwear substantial Rolling Left and Right partial assistance Sit to Lying partial assistance Lying to Sitting partial assisted Sit to Stand substantial Bed to Chair Transfers unable Toilet Transfers unable Car Transfers unable Walking 10' unable Walking 50' with Two Turns unable Walking 150' unable Curb or Step unable 4 Steps under 12 Steps under Picking Up Object unable [Wheelchair Mobility 50'] under [Wheelchair Mobility 150'] under GOALS: Eating [INDEPENDENT] Oral Care [INDEPENDENT] Toileting Hygiene [INDEPENDENT] Shower/Bathing [INDEPENDENT] Upper Body Dressing [INDEPENDENT] Lower Body Dressing [INDEPENDENT] Donning/[place] Footwear [INDEPENDENT] Rolling Left and Right [INDEPENDENT] Sit to Lying [INDEPENDENT] Lying to Sitting [INDEPENDENT] Sit to Stand [INDEPENDENT] Bed to Chair Transfers [INDEPENDENT] Toilet Transfers [INDEPENDENT] Car Transfers [INDEPENDENT] Walking 10' [INDEPENDENT] Walking 50' with Two Turns [INDEPENDENT] Walking 150' [INDEPENDENT] Curb or Step [INDEPENDENT] 4 Steps [INDEPENDENT] 12 Steps not applicable Picking Up Object [INDEPENDENT] [Wheelchair Mobility 50'] [INDEPENDENT] [Wheelchair Mobility 150'] [INDEPENDENT] DISCHARGE PERFORMANCE: Eating [INDEPENDENT] Oral Care [INDEPENDENT] Toileting Hygiene [INDEPENDENT] Shower/Bathing [INDEPENDENT] Upper Body Dressing [INDEPENDENT] Lower Body Dressing [INDEPENDENT] Donning/[place] Footwear [INDEPENDENT] Rolling Left and Right [INDEPENDENT] Sit to Lying [INDEPENDENT] Lying to Sitting [INDEPENDENT] Sit to Stand [INDEPENDENT] Bed to Chair Transfers [INDEPENDENT] Toilet Transfers [INDEPENDENT] Car Transfers supervision Walking 10' [INDEPENDENT] Walking 50' with Two Turns [INDEPENDENT] Walking 150' [INDEPENDENT] Curb or Step supervision 4 Steps supervision 12 Steps not applicable Picking Up Object [INDEPENDENT] [Wheelchair Mobility 50'] [INDEPENDENT] [Wheelchair Mobility 150'] [INDEPENDENT] # during the hospitalization patient remained actively involved in a physical therapy and occupational therapy her hospital course was mainly complicated by the complaints of chronic pain because of the underlying rheumatoid arthritis manifesting itself by intermittent swelling of the small joints of the hands as well as edema of the feet she required the course of Medrol Dosepak to go through the physical therapy her other medications were discontinued by the surgical service and once she is discharged from here she will follow-up with her detail supervisor for further adjustment of the treatment according to the instruction of the surgeon by the time of discharge she was independently ambulating with a wheeled walker up to 50ft with 2 turns and her general physical examination otherwise was unremarkable. Thelma
== END 2020-08-07 17:55 | disposition home health service (06) | DRG 560 ==
PROVIDERS: Admitting Provider Psychiatry & Neurology Neurology; PCP Family Medicine; Visit Provider Psychiatry & Neurology Neurology
DX: Z47.1 Aftercare following joint replacement surgery (principal); M47.15 Other spondylosis with myelopathy, thoracolumbar region; Z96.651 Presence of right artificial knee joint; M06.861 Other specified rheumatoid arthritis, right knee; K21.9 Gastro-esophageal reflux disease without esophagitis; E66.9 Obesity, unspecified; G89.29 Other chronic pain; I12.9 Hypertensive chronic kidney disease with stage 1 through stage 4 chronic kidney disease, or unspecified chronic kidney disease; N18.32 Chronic kidney disease, stage 3b; Z68.39 Body mass index [BMI] 39.0-39.9, adult
CPT/HCPCS: 36415; 80048; 81001; 85025; 87077; 87086; 87088; 87186; 93971; 97110; 97116; 97140; 97161; 97166; 97530; 97535; 97542; A9270; J7512

== ENCOUNTER 2020-10-30 18:08 | Outpatient (CLI) | payer OTHER, BC, SELFPAY ==
--- NOTE | ~2020-10-30 | CT_ITS ---
EXAMINATION: CT lumbar spine wo con DATE: 10/30/2020 19:18 INDICATION: Lumbago. Lumbar radiculopathy. TECHNIQUE: Computed tomography (CT) of the lumbar spine was performed without intravenous contrast. A utomated exposure control and iterative reconstruction technique were employed. The dose-length produ ct was 1291.80 mGy-cm. COMPARISON: None FINDINGS: There is 5 mm anterolisthesis of L4 on L5. There are changes of anterior fusion procedures from L1 L5 with interbody devices. There are changes of posterior fusion procedure from T10 to L5 wit h pedicle screws. There is an L2 laminotomy. There are laminectomies from L3 to L5. There is severely decreased disc height at L5-S1 with endplate remodeling. There are bone graft donor sites in the amarilis ateral iliac bones. The following disc levels are specifically discussed: L1-L2: There is moderate right facet joint hypertrophy. There is moderate right neural foraminal sten osis. There is no central canal stenosis. L2-L3: There is mild right facet joint hypertrophy. There is mild bilateral neural foraminal stenosis . There is no central canal stenosis. L3-L4: There is mild bilateral facet joint hypertrophy. There is mild right and moderate left neural foraminal stenosis. There is no central canal stenosis. L4-L5: There is mild bilateral facet joint hypertrophy. There is mild bilateral neural foraminal sten osis. There is no central canal stenosis. L5-S1: The disc is bulging. There is severe bilateral facet joint osteoarthritis. There is mild right and moderate left neural foraminal stenosis. There is mild central canal stenosis. IMPRESSION: 1. Severe spondylosis, worst at L5-S1. 2. Anterior fusion procedures from L1 to L5 and posterior fusion procedure from T10 to L5. Reviewed, dictated and finalized at location A.
== END 2020-10-30 18:09 | disposition home or self-care (01) ==
LOC: ANHIMG 18:15
PROVIDERS: PCP Family Medicine; Visit Provider Nurse Practitioner Family
DX: M47.27 Other spondylosis with radiculopathy, lumbosacral region (principal); M48.07 Spinal stenosis, lumbosacral region; Z98.1 Arthrodesis status
CPT/HCPCS: 72131

== ENCOUNTER 2020-11-22 17:13 | Emergency (ER) | payer OTHER, BC, SELFPAY ==
--- NOTE | 2020-11-22 17:18 | ED.UPPEXIN ---
HPI - Extremity Injury (Upper) General Chief Complaint: Extremity Problem,Nontraumatic Stated Complaint: RA FLARE Time Seen by Provider: 11/22/20 17:18 Source: patient and RN notes reviewed Mode of arrival: ambulatory (With walker) Limitations: no limitations History of Present Illness HPI narrative: 55-year-old female presents to the [facility] with a history of rheumatoid arthritis complaining of a flare in the elbow pain and swelling. There is no signs of infection. Swelling noted posterior left elbow without increased warmth or redness. Had been wearing an elbow brace that she had at home with some support. Patient states that she had a knee replaced on 17 July. Is due to have her left knee replaced 04 December. Had been off her RA medication since June due to the surgeries. States when she has a flare like this she usually takes Medrol Dosepak and it helps. States being off her methotrexate she has had increased flares. Tried calling her her primary or her RA doctor and nobody was in due to it being Tuesday. Related Data Home Medications Medication Instructions Recorded Confirmed folic acid 1 mg PO DAILY 11/22/20 Allergies Allergy/AdvReac Type Severity Reaction Status Date / Time No Known Allergies Allergy Verified 11/22/20 17:36 Review of Systems Review of Systems: All systems reviewed & are unremarkable except as noted in HPI and below Constitutional: Constitutional: Reports no additional constitutional complaints, Denies chills and Denies fever(s) Eyes: Eyes: Reports no additional eye complaints ENT: Reports system reviewed and no additional complaints, except as documented Cardiovascular: Cardiovascular: Reports no additional cardiovascular complaints and Denies chest pain Respiratory: Respiratory: Reports no additional respiratory complaints, Denies cough, Denies dyspnea and Denies wheezing Gastrointestinal: Gastrointestinal: Reports no additional gastrointestinal complaints, Denies abdominal pain, Denies nausea and Denies vomiting Musculoskeletal: Musculoskeletal: Reports joint swelling (Left posterior elbow) Integumentary/Breasts: Skin/Breast: Reports system reviewed and no additional complaints, except as docu, Denies erythema and Denies rash Neurologic: Reports system reviewed and no additional complaints, except as documented, Denies dizziness, Denies headache(s), Denies numbness and Denies weakness Psychiatric: Psychiatric: Reports no additional psychiatric complaints Allergic/Immunologic: Allergic/Immunologic: Reports no additional allergic/immunologic complaints PMFSH Past Medical History Medical History CKD (chronic kidney disease) stage 3, GFR 30-59 ml/min GERD without esophagitis Hypertension Metal bone fixation hardware in place Neuropathy Obesity Rheumatoid arthritis Surgical History Surgical History History of knee surgery Previous back surgery S/P laminectomy with spinal fusion Family History Family History Father Hypertension Mother Hypertension Family history of scoliosis Family history of malignant melanoma Social History Social History Smoking status: Never smoker Second hand tobacco smoke exposure: No Alcohol intake: former Substance use: current Substance use type: prescription drug Other substance usage details: prescription Gender identity (if verbalized by the patient): Female Spiritual care concerns: No Comments At the time of my signature, I reviewed and agree with the nursing past medical, surgical, social, and family history. There is no relevant family history pertinent to the patient complaint. Exam Const: General: no acute distress, alert and ill appearing chronically Nutritional Appearance: well nourished and obese Orientation
[2020-11-22 17:21] VITALS: BP 105/72; PULSE 90; RESP 16; TEMP 36.6; O2SAT 100
== END 2020-11-22 17:52 | disposition home or self-care (01) ==
PROVIDERS: Emergency Provider Nurse Practitioner
DX: M70.22 Olecranon bursitis, left elbow (principal); I12.9 Hypertensive chronic kidney disease with stage 1 through stage 4 chronic kidney disease, or unspecified chronic kidney disease; N18.30 Chronic kidney disease, stage 3 unspecified; K21.9 Gastro-esophageal reflux disease without esophagitis; G62.9 Polyneuropathy, unspecified; M06.9 Rheumatoid arthritis, unspecified; E66.9 Obesity, unspecified
CPT/HCPCS: 99213; G0463

== ENCOUNTER 2022-09-05 23:45 | Emergency (ER) | payer OTHER, BC, SELFPAY ==
[2022-09-06 00:06] LABS: Glucose Point of Care < 33 mg/dl (65-105)
--- NOTE | 2022-09-06 00:11 | PC.NURSE ---
Staff present at bedside during Code Blue; MD Pettit, RN Tab, RN Gayle, RN Maddy, RT Mehreen and PCT Sulma. Radiology and lab in ER.
--- NOTE | 2022-09-06 00:13 | ED.CPR ---
HPI - CPR General Chief Complaint: Cardiac Arrest/CPR Stated Complaint: code Time Seen by Provider: 09/05/22 23:52 Source: EMS Mode of arrival: ambulatory (with active CPR. Arrived at 23:46, greeted ambulance in ambulance bay by me & team at 23:46. Seen by provider at 23:46.) Limitations: other (CPR, intubated. ) History of Present Illness HPI narrative: the patient is a 57-year-old with no history of diabetes, history of chronic kidney disease stage 3, GERD, hypertension, obesity on ozempic, rheumatoid arthritis on chronic prednisone, neuropathy, and multiple orthopedic procedures including bilateral total knee replacement and back surgery/laminectomy. Per EMS, the patient had a sudden collapse to home with agonal respirations initially and then CPR started at home by family. CPR ongoing for 5 minutes before EMS arrival. EMS connected the Saul CPR device and CPR was started in the field at 11:00 p.m. 09/06/2022 through the Saul device. She received 7 mg of epinephrine for predominant rhythm of a very slow idioventricular rhythm pulseless electrical activity. Accu-Chek 51 at 1 point, D50 given. Narcan given x1. CPR in progress upon arrival. Intubated with the I-Gel in the field with equal breath sounds per EMS. Related Data Home Medications Medication Instructions Recorded Confirmed allopurinol 100 mg tablet 100 mg PO BID 07/27/21 07/27/21 prednisone 5 mg tablet 5 mg PO BID 07/27/21 07/27/21 Allergies Allergy/AdvReac Type Severity Reaction Status Date / Time No Known Allergies Allergy Verified 07/27/21 16:14 Review of Systems Review of Systems: ROS unobtainable: Yes unobtainable due to endotracheal tube (with active CPR, no family at present.) [facility] Past Medical History Medical History Aftercare following bilateral knee joint replacement surgery CKD (chronic kidney disease) stage 3, GFR 30-59 ml/min GERD without esophagitis Hypertension Metal bone fixation hardware in place Neuropathy Obesity Rheumatoid arthritis Surgical History Surgical History History of knee surgery Previous back surgery S/P laminectomy with spinal fusion Family History Family History Father Hypertension Mother Hypertension Family history of scoliosis Family history of malignant melanoma Social History Social History Smoking status: Never smoker Second hand tobacco smoke exposure: No Alcohol intake: current Alcohol use details: Occasional Substance use: current Substance use type: prescription drug Other substance usage details: prescription Living arrangements: with family Occupation/Education: occupation Gender identity (if verbalized by the patient): Female Sexual Orientation (if Verbalized by the Patient): Lesbian, Rudolph, or Homosexual Spiritual care concerns: No Exam Narrative: CPR in place Const: General: patient obtunded, obese and other (unresponsive) Orientation/consciousness: patient obtunded Limitations: other limitations (CPR in place) HENMT: Head: normal to inspection Ears: external ears normal Face/Nose/Sinus: Normal external nose present Face and sinus: normal facial exam Mouth: Yes other (I-Gel in place, no bubbling from the mouth with bag-mask ventilation) Eyes: Pupils: Dilated pupils and Fixed pupils Neck: Neck: normal visual inspection Other: short neck Chest: Chest palpation & inspection: normal inspection of the chest Other: Saul CPR device in place. Resp: Other: Coarse breath sounds bilaterally, equal and symmetric Cardio: Other: PEA with an agonal idioventricular rhythm, 8/minute, no spontaneous pulse. Pulse present with CPR. GI: GI Palp: Yes Soft to palpation Auscultation: absent bowel sounds Other: no trauma Back/Spine/Pelvis: Other:
--- NOTE | 2022-09-06 00:40 | PC.NURSE ---
Foamite Mixer Lee Mcduffie cleared pt to be released to home or [facility] transplant.
--- NOTE | 2022-09-06 01:54 | PC.NURSE ---
Naomi from [facility] transplant contacted concerning pt next of kin contact information and update with donor status. [facility] will call back once pt's donor status has been determined.
--- NOTE | 2022-09-06 02:09 | PC.NURSE ---
[facility] arrived with active CPR being performed on pt with a Saul. EMS reports that CPR started at 2300. EMS reported that first responders were performing CPR upon EMS arrival and pt's home. EMS reports that family witnessed pt becoming unresponsive and started CPR. EMS reports that I-Gel airway, IV access placed and blood glucose of 51 was obtained. EMS gave Narcan 2mg, D10 - 100ml, NS -200ml and 7 doses of epinephrine prior to arrival to ER. pt arrived at ER with no IV access due IV was dislodged during transport. Pt arrived in ER and placed in room seven at 09/05/22 @2345. CPR continued via [facility] Saul. IO 15g established in left humeral head by MD Pettit at 2352. See Code Blue documentation sheet for medications administration and times. Unable to obtain a detectable blood pressure or pulse at 2352. Pulse check at 2355, and 0000 with a pulse identified at PEA. CPR with Saul resumed. Battery on Saul failed at 0004, CPR stopped to remove [facility] Saul and replace with [facility] Saul. Pulse identified at PEA at 0004. CPR resumed with [facility] Saul. Pulse check at 0010 with a pulse identified at PEA. Md Pettit terminated CPR efforts and pronounced time of on 09/06/22 at 0010.
--- NOTE | 2022-09-06 02:10 | PC.NURSE ---
Addendum entered by Tab Stover RN 09/06/22 02:21: home identified as [facility] in [place], [place] ([phone]). Original Note: Pt's , Elvie Hollis ([phone]) signed permit for removal of body form. pt's family leaving ER at this time.
--- NOTE | 2022-09-06 02:16 | PC.NURSE ---
Contacted Naomi at [facility] to inform her that family has left pt bedside. Naomi informed this staff member she will be contacting next of kin and will call back with any new update donor status.
--- NOTE | 2022-09-06 03:43 | PC.NURSE ---
Naomi from [facility] called to inform us that the pt is a candidate for transplant. [facility] will dispatch transportation to pickup pt today as soon as they can.
--- NOTE | 2022-09-06 05:41 | PC.NURSE ---
[facility] arrived at the ER to transport pt. permit for removal of body form signed.
== END 2022-09-06 00:10 | disposition expired ==
PROVIDERS: Emergency Provider Emergency Medicine; PCP Family Medicine
DX: I46.9 Cardiac arrest, cause unspecified (principal); I12.9 Hypertensive chronic kidney disease with stage 1 through stage 4 chronic kidney disease, or unspecified chronic kidney disease; E11.22 Type 2 diabetes mellitus with diabetic chronic kidney disease; N18.30 Chronic kidney disease, stage 3 unspecified; M06.9 Rheumatoid arthritis, unspecified
CPT/HCPCS: 82948; 92950; 96374; 96375; 99285; J0171; J7030